=== PATIENT | female | born 1950 | race Caucasian/White ===

== ENCOUNTER 2017-11-03 16:00 | Outpatient (RCR) | payer OTHER, MEDICARE, SELFPAY | END 2017-11-03 23:59 | LOC: PT 16:00 | PROVIDERS: PCP Family Medicine; Visit Provider Family Medicine | DX: M54.16 Radiculopathy, lumbar region (principal) | CPT/HCPCS: 97010; 97012; 97014; 97110; 97161; G0283 ==

== ENCOUNTER 2017-12-07 15:30 | Outpatient (RCR) | payer OTHER, MEDICARE, SELFPAY | END 2017-12-07 15:31 | disposition home or self-care (01) | LOC: PT 15:30 | PROVIDERS: Family Provider Family Medicine; PCP Family Medicine; Visit Provider Family Medicine | DX: M54.16 Radiculopathy, lumbar region (principal) | CPT/HCPCS: 97010; 97012; 97014; 97110; 97164; G0283 ==

== ENCOUNTER → 2018-03-13 10:30 | Outpatient (POV) | payer OTHER, MEDICARE, SELFPAY | PROVIDERS: Family Provider Family Medicine; PCP Family Medicine; Visit Provider Nurse Practitioner Acute Care | DX: Z00.00 Encounter for general adult medical examination without abnormal findings (principal) ==

== ENCOUNTER → 2019-11-16 10:59 | Outpatient (CLI) | payer MEDICARE, OTHER, SELFPAY ==
--- NOTE | 2019-11-16 11:06 | XR_ITS ---
PROCEDURE: XR HAND RT MIN 3V CLINICAL INDICATION: ROSALIO HAND PAIN Right hand pain COMPARISON: No exams were available for comparison FINDINGS: No fracture or dislocation. No lytic or blastic change. There is normal mineralization. There are severe osteoarthritic changes at the interphalangeal joint of the thumb and the DIP joint of the 2nd digit with mild osteoarthritis of the DIP joint of the 3rd digit. Other findings:None. IMPRESSION: There are severe osteoarthritic changes at the interphalangeal joint of the thumb and the DIP joint of the 2nd digit with mild osteoarthritis of the DIP joint of the 3rd digit. Dictated by: Deandre Flores MD 11/16/2019 11:25 Electronically signed by Deandre Flores MD in [place] 11/16/2019 11:25
--- NOTE | 2019-11-16 11:06 | XR_ITS ---
PROCEDURE: XR HAND LT MIN 3V CLINICAL INDICATION: ROSALIO HAND PAIN COMPARISON: No exams were available for comparison FINDINGS: No fracture or dislocation. No lytic or blastic change. There is normal mineralization. Moderate osteoarthritic changes are present at the interphalangeal joint of the thumb with bony hypertrophic change and separate area of calcification along the lateral aspect of the joint. Mild osteoarthritic changes are present at the 1st and 2nd DIP joint. Other findings:None. IMPRESSION: Osteoarthritis Dictated by: Deandre Flores MD 11/16/2019 11:41 Electronically signed by Deandre Flores MD in [place] 11/16/2019 11:41
== END ==
PROVIDERS: PCP Family Medicine; Visit Provider Family Medicine
DX: M79.642 Pain in left hand (principal); M79.641 Pain in right hand
CPT/HCPCS: 73130

== ENCOUNTER → 2020-04-03 07:42 | Outpatient (CLI) | payer MEDICARE, OTHER, SELFPAY ==
[2020-04-03 10:24] LABS: Coronavirus 19 IgG Antibody Negative (Negative); Coronavirus 19 IgM Antibody Negative (Negative)
== END ==
PROVIDERS: Visit Provider Internal Medicine Gastroenterology
DX: Z01.818 Encounter for other preprocedural examination (principal)
CPT/HCPCS: 36415; 86328

== ENCOUNTER 2020-04-04 09:15 | Day surgery (SDC) | payer MEDICARE, OTHER, SELFPAY ==
[2020-04-01 15:31] VITALS: BMI 25.2
--- NOTE | 2020-04-02 10:14 | SUR.PREOP ---
04/02/2020 @ 1015--PHONE CALL MADE TO PATIENT. PATIENT UNDERSTANDS THAT LAB WORK AND COVID TESTING NEEDS TO BE COMPLETED @ 0700 ON 04/03/2020. PATIENT UNDERSTANDS IF LAB WORK AND COVID-19 TESTS ARE NOT COMPLETED BY 12PM ON THAT DATE, THE SURGERY SCHEDULED WILL BE CANCELLED AND RESCHEDULED FOR ANOTHER TIME.
[2020-04-04] VITALS (7 sets, daily range): BP systolic 139–161; BP diastolic 68–104; PULSE 55–88; RESP 15–18; TEMP 36.1–36.6; O2SAT 97–99
--- NOTE | 2020-04-04 11:27 | HMH.PROC ---
[facility] Procedure Note Procedure Note:: Upper Endoscopy Procedure Report: Esophagogastroduodenoscopy with cold biopsies and TTS balloon dilation Endoscopost: Alexander Vasquez II, MD Referring Physician: Sadi Manzanares MD Date of Procedure: April 04, 2020 Equipment: Olympus GIF 180 standard upper endoscope Sedation: MAC sedation Indications: Mrs. Schaeffer is a 69-year-old female with a history of dysphagia secondary to a Schatzki's ring. She has had prior dilations in 2009, April 2016 and her last EGD with dilation was in March 2018. The patient also reports moderate postprandial belching with mouth foaming, sharp stabbing mid upper sternal chest pain and some pyrosis. The patient does have some early satiety. She reports globus sensation. Iberogast caused nausea. She stopped Citrucel and more recently this resulted in some diarrhea. She does take omeprazole. She did see Felisa Newton in December 2019. Procedure: Prior to the procedure, a history and physical exam was performed, and patient's medications and allergies were reviewed. The risks, benefits and alternatives of the sedation and procedure were discussed with the patient. All questions were answered and informed consent was obtained. The patient was brought to the procedure room. Patient identification and proposed procedure were verified by the physician and the nurse. The patient was placed in a left lateral decubitus position and the scope was passed under direct vision. Throughout the procedure, the patient's blood pressure, pulse, and oxygen saturations were monitored continuously. The upper GI endoscopy was accomplished without difficulty. The patient tolerated the procedure well. Findings: The scope was passed directly into the upper esophagus and advanced to the third portion of the duodenum. The post bulbar duodenum and duodenal bulb were normal with normal mucosa and conniventes. The scope was withdrawn through a normal duodenal bulb and pylorus into the stomach. There was bile reflux with mild linear reactive gastropathy of the antrum and body of the stomach. The remainder of the antrum, body and fundus of the stomach were grossly normal. Upon retroflexion there was a very small 1 to 2 cm hiatal hernia. 2 biopsies were taken in the antrum and along the lesser curvature for histology to rule out gastritis and/or H pylori. The scope was then withdrawn into the esophagus. There was a distal Schatzki's ring. This was dilated to 60 Armenian/20 mm with a TTS hydrostatic balloon. There was no evidence of reflux esophagitis or Sheets's. There were tertiary contractions and evidence of moderate esophageal dysmotility. The entire esophagus was dilated to 20 mm and there was some resistance at the cricopharyngeus/cricopharyngeal spasm. The remainder of the esophageal mucosa was normal. Impression: 1. Cricopharyngeal spasm status post dilation to 20 mm 2. Schatzki's ring dilated to 20 mm 3. Nonerosive GERD with mild esophageal dysmotility and very small 1 to 2 cm hiatal hernia 4. Bile reflux with mild linear reactive gastropathy Plan: The patient should have clinical improvement with dilation. I will discuss additional treatment options (promotility therapy (i.e. Reglan)). I would continue omeprazole as maintenance therapy. I will follow-up the biopsies.
== END 2020-04-04 12:17 | disposition home or self-care (01) ==
LOC: OUTP 09:19
PROVIDERS: PCP Family Medicine; Visit Provider Internal Medicine Gastroenterology
PROC: 0DJ08ZZ Inspection of Upper Intestinal Tract, Via Natural or Artificial Opening Endoscopic (ICD-10-PCS; CPT 43235; principal; 2020-04-04 10:30)
DX: J39.2 Other diseases of pharynx (principal); K22.2 Esophageal obstruction; K44.9 Diaphragmatic hernia without obstruction or gangrene; K22.4 Dyskinesia of esophagus; K31.9 Disease of stomach and duodenum, unspecified; K21.9 Gastro-esophageal reflux disease without esophagitis; J45.909 Unspecified asthma, uncomplicated; Z90.89 Acquired absence of other organs; Z90.710 Acquired absence of both cervix and uterus; Z79.899 Other long term (current) drug therapy; Z79.51 Long term (current) use of inhaled steroids
CPT/HCPCS: 43239; 43249; 88305; C1726

== ENCOUNTER → 2020-06-09 08:34 | Outpatient (POV) | payer MEDICARE, OTHER, SELFPAY | PROVIDERS: Visit Provider Nurse Practitioner Family | DX: Z00.00 Encounter for general adult medical examination without abnormal findings (principal) ==

== ENCOUNTER → 2020-12-24 12:20 | Outpatient (CLI) | payer MEDICARE, OTHER, SELFPAY ==
--- NOTE | 2020-12-24 12:25 | XR_ITS ---
PROCEDURE: XR CHEST PORTABLE CLINICAL HISTORY: COVID TESTING COMPARISON: No exams were available for comparison FINDINGS: The cardiomediastinal silhouette and pulmonary vascularity are within normal limits. The lungs are clear without infiltrates, suspicious nodules, or pleural effusions. No acute bony abnormalities. IMPRESSION: No acute findings. Dictated by: Sia Leary MD 12/24/2020 13:16 Sia Leary MD in [place] 12/24/2020 13:16
[2020-12-24 12:58] LABS: Basophils # 0.1 K/mm3 (0-0.2); Basophils % 1.7 % (0.1-2.0); Eosinophils # 0.8 K/mm3 (0.0-0.4); Eosinophils % 10.1 % (0.1-12.0); Hematocrit 43.5 % (37.0-47.0); Hemoglobin 13.4 g/dL (12.2-16.2); Lymphocytes # 2.1 K/mm3 (0.7-4.5); Lymphocytes % 25.3 % (10-50); Mean Corpuscular HGB Conc 30.8 g/dL (31.8-35.4); Mean Corpuscular Hemoglobin 29.2 pg (27.0-31.2); Mean Corpuscular Volume 94.6 fl (81-99); Mean Platelet Volume 7.1 fl (7.4-10.4); Monocytes # 0.4 K/mm3 (0.1-1.0); Monocytes % 5.3 % (1.7-9.3); Neutrophils # 4.7 K/mm3 (1.8-7.8); Neutrophils % 57.6 % (37.0-80.0); Platelet Count 424 K/mm3 (142-424); Red Cell Distribution Width 13.8 % (11.5-17.5); White Blood Count 8.2 K/mm3 (4.8-10.8)
== END ==
PROVIDERS: PCP Family Medicine; Visit Provider Family Medicine
DX: Z20.822 Contact with and (suspected) exposure to COVID-19 (principal); Z79.899 Other long term (current) drug therapy
CPT/HCPCS: 36415; 71045; 85025; U0003

== ENCOUNTER → 2021-03-05 13:46 | Outpatient (CLI) | payer MEDICARE, OTHER, SELFPAY ==
--- NOTE | 2021-03-05 13:50 | XR_ITS ---
PROCEDURE: XR KNEE LT 3V CLINICAL INDICATION: LT KNEE PAIN COMPARISON: CR KNEE3L KNEE-3 VIEWS-LT from 10/25/2016 FINDINGS: Moderate to severe osteoarthritic changes are present involving the medial compartment and patellofemoral joint. There is a small knee joint effusion in the suprapatellar region. No fracture or dislocation. Along the dorsal and distal aspect of the femur there is a 7 mm calcific density suggesting a loose body IMPRESSION: Moderate to severe osteoarthritis with knee joint effusion and small loose body along the distal posterior aspect of the femur Dictated by: Deandre Flores MD 03/05/2021 17:54 Deandre Flores MD in [place] 03/05/2021 17:54
== END ==
PROVIDERS: PCP Family Medicine; Visit Provider Family Medicine
DX: M25.562 Pain in left knee (principal)
CPT/HCPCS: 73562

== ENCOUNTER → 2021-03-26 10:04 | Outpatient (CLI) | payer MEDICARE, OTHER, SELFPAY ==
--- NOTE | 2021-03-26 10:08 | XR_ITS ---
PROCEDURE: XR KNEE LT 4V CLINICAL INDICATION: Lt knee pain COMPARISON: CR KNEE3L KNEE-3 VIEWS-LT from 10/25/2016 CR XR KNEE LT 3V from 03/05/2021 FINDINGS: No fracture or dislocation. No lytic or blastic change. There is normal mineralization. Severe osteoarthritic changes involves the medial compartment of the left knee with mild osteoarthritis of the patellofemoral joint and lateral compartment. Small suprapatellar effusion is present. Other findings:None. IMPRESSION: Osteoarthritis of the left knee with knee joint effusion overall not significantly changed Dictated by: Deandre Flores MD 03/26/2021 11:29 Deandre Flores MD in [place] 03/26/2021 11:29
== END ==
PROVIDERS: PCP Family Medicine; Visit Provider Orthopaedic Surgery
DX: M25.562 Pain in left knee (principal)
CPT/HCPCS: 73564

== ENCOUNTER → 2021-11-09 08:56 | Outpatient (CLI) | payer MEDICARE, OTHER, SELFPAY ==
[2021-11-09 09:14] LABS: Microscopic, Urine URINE MICROSCOPIC (MICROSCOPIC)
--- NOTE | 2021-11-09 09:39 | XR_ITS ---
FINAL REPORT TECHNIQUE: Chest PA & Lateral CLINICAL HISTORY: MODERATE TO PERSISTENT ASTHMA,PRE-OP, no sx, non smoker FINDINGS: 2 views of the chest were performed. The heart size is normal. The mediastinum is within normal limits. There is no acute cardiopulmonary process. There are mild chronic changes at the lung bases. There are no pleural effusions. There is no pneumothorax. The bony thorax appears intact. IMPRESSION: No acute cardiopulmonary process. Reviewed, Interpreted and Dictated by Ronnie Wagner MD Transcribed by Haily Street Authenticated by Ronnie Wagner MD on 11/09/2021 10:43:01 AM [facility]
--- NOTE | 2021-11-09 09:58 | ECG_ITS ---
APPROVED REPORT Exam: Resting ECG HR:91 bpm ECG Measurements Heart Rate 91 AXES VT 150 P 70 QRSd 70 QRS 68 QT 346 T 49 QTc 425 Conclusion Normal sinus rhythm Nonspecific T wave abnormality Abnormal ECG Electronically signed by : Bill De Anda MD 11/09/2021 21:33:47
[2021-11-09 10:05] LABS: Basophils # 0.1 K/mm3 (0-0.2); Basophils % 1.8 % (0.1-2.0); Eosinophils # 0.6 K/mm3 (0.0-0.4); Eosinophils % 9.7 % (0.1-12.0); Hematocrit 45.6 % (37.0-47.0); Hemoglobin 14.6 g/dL (12.2-16.2); Lymphocytes # 1.8 K/mm3 (0.7-4.5); Lymphocytes % 29.6 % (10-50); Mean Corpuscular HGB Conc 31.9 g/dL (31.8-35.4); Mean Corpuscular Hemoglobin 30.1 pg (27.0-31.2); Mean Corpuscular Volume 94.4 fl (81-99); Mean Platelet Volume 8.9 fl (7.4-10.4); Monocytes # 0.3 K/mm3 (0.1-1.0); Monocytes % 4.9 % (1.7-9.3); Neutrophils # 3.3 K/mm3 (1.8-7.8); Neutrophils % 54.1 % (37.0-80.0); Platelet Count 526 K/mm3 (142-424); Red Blood Count 4.83 M/mm3 (4.20-5.40); Red Cell Distribution Width 13.3 % (11.5-17.5); White Blood Count 6.1 K/mm3 (4.8-10.8)
[2021-11-09 10:25] LABS: Chloride 103 mmol/L (98-107)
[2021-11-09 10:26] LABS: Potassium 4.9 mmoL/L (3.5-5.1); Sodium 140 mmol/L (136-145)
[2021-11-09 10:28] LABS: Alanine Aminotransferase 34 U/L (12-78); Aspartate Amino Transferase 47 U/L (14-36); Blood Urea Nitrogen 19 mg/dl (7-17); Estimated Glomerular Filt Rate 49 ml/min (>60); GFR (African American) 59 ML/MIN (>60)
[2021-11-09 10:29] LABS: Albumin Level 4.3 g/dl (3.5-5.0); Albumin/Globulin Ratio 1.5 (1.1-1.8); Alkaline Phosphatase 85 U/L (38-126); Anion Gap 10.9 mEq/L (5-15); Bilirubin,Total 0.6 mg/dl (0.2-1.3); Calcium 9.8 mg/dl (8.4-10.2); Carbon Dioxide 31 mmol/L (22.0-30.0); Chol/HDL Ratio 2.9 (1-3.5); Cholesterol 274 mg/dl (140-200); Globulin 2.8 g/dL (1.3-3.2); Glucose 110 mg/dl (74-100); HDL Cholesterol 93 mg/dl (40-60); Total Protein,Serum 7.1 g/dl (6.3-8.2); Triglycerides 95 mg/dl (30-150); VLDL Cholesterol 19 mg/dL (0-40)
[2021-11-09 10:40] LABS: Direct LDL Cholesterol 149.88 mg/dL (100-129)
[2021-11-09 10:59] LABS: 25-OH Vitamin D, Total 117 ng/mL (30-100)
[2021-11-09 11:21] LABS: Uric Acid 5.5 mg/dl (2.5-6.2)
[2021-11-09 11:31] LABS: Appearance,Urine CLEAR (Clear); Bilirubin,Urine Negative (Negative); Blood, Urine Negative (Negative); Color,Urine YELLOW (Yellow); Glucose,Urine (UA) Negative (Negative); Ketones,Urine Negative (Negative); Leukocyte Esterase,Urine TRACE (Negative); Nitrate,Urine Negative (Negative); Protein,Urine Negative (Negative); Specific Gravity, Urine 1.025 (1.005-1.030); Urobilinogen,Urine 0.2 EU/dl (0.2)
[2021-11-09 11:45] LABS: Creatinine,Urine Random 155 mg/dL (Not Estab.)
[2021-11-09 11:46] LABS: Microalbumin/Creatinine Ratio 8.2
== END ==
PROVIDERS: PCP Family Medicine; Visit Provider Family Medicine
DX: Z01.818 Encounter for other preprocedural examination (principal); I10 Essential (primary) hypertension; J45.40 Moderate persistent asthma, uncomplicated; E55.9 Vitamin D deficiency, unspecified
CPT/HCPCS: 36415; 71046; 80053; 80061; 81001; 82043; 82306; 82570; 84550; 85025; 93005

== ENCOUNTER → 2021-12-30 12:18 | Outpatient (CLI) | payer MEDICARE, OTHER, SELFPAY | PROVIDERS: Visit Provider Internal Medicine Gastroenterology | DX: Z01.812 Encounter for preprocedural laboratory examination (principal); Z11.52 Encounter for screening for COVID-19 | CPT/HCPCS: C9803; U0003; U0005 ==

== ENCOUNTER 2022-03-10 08:00 | Outpatient (RCR) | payer MEDICARE, OTHER, SELFPAY ==
--- NOTE | 2022-02-10 09:20 | HMH.PTOPEV ---
PT Outpatient Evaluation Rehab PT Outpatient Evaluation Start: 02/10/22 08:03 Freq: Status: Active Protocol: Document 02/10/22 09:08 OMAIRA (Rec: 02/10/22 09:20 OMAIRA [id number]) Electronically Signed By James Nj, PT 02/10/22 09:08 Outpatient Therapy Subjective History Subjective History Pt is 71 yowf who presents 1 day S/P L TKA with pain, edema , and stiffness. She presents with post-op [employer] pump in place and compression wrapping to the L knee area. As pt is only 1 day post-op, decision was made to leave compression wrapping in place to aid further edema reduction. Pt reports she has suffered from significant L knee pain x ~5-6 yrs and had difficulty with L knee extension prior to surgery. She reports PMH of asthma only. Chief Complaint Pain,Stiff,Swelling Symptom Type Ache,Sharp Symptoms Relieved By Rest/Positioning Symptoms Aggravated By Standing,Walking Prior Functional Limitations None Current Functional Limitations Standing,Squatting,Recreation Activity,Walking Symptom Description Constant but Variable Level of pain today (0-10) 5 Pain scale - at its worst (0-10) 7 Hip/Knee Eval Gait Observation General Gait Pattern Observation Antalgic Gait Assistive Device Assistive Devices Rolling / Wheeled Walker Palpation Tenderness left Knee Palpation Finding Tenderness Knee Palpation Overall Comment med/lat knee jt line MMT Hip Flexion Strength Grade 3 Fair Hip Abduction Strength Grade 3 Fair Hip Adduction Strength Grade 3 Fair Hip Extension Strength Grade 3 Fair Knee Extension Strength Grade 2 Poor Knee Flexion Strength Grade 2 Poor ROM Knee Extension Active Range of Motion ( -15 degrees) Knee Extension Passive Range of Motion ( -5 degrees) Knee Flexion Active Range of Motion ( 15-92 degrees) Knee Flexion Passive Range of Motion ( 5-100 degrees) Outpatient Therapy Assessment Impairments Problems/Impairmments Palpation Tenderness,Impaired Range of Motion,Impaired Strength,Impaired Endurance, Impaired Transfers,Impaired Gait Pattern,Impaired Walking,
== END 2022-03-10 08:05 | disposition home or self-care (01) ==
LOC: PT 08:00
PROVIDERS: Visit Provider Orthopaedic Surgery
DX: M25.562 Pain in left knee (principal); Z96.652 Presence of left artificial knee joint
CPT/HCPCS: 97010; 97014; 97016; 97110; 97112; 97140; 97163; G0283

== ENCOUNTER → 2023-05-13 08:14 | Outpatient (CLI) | payer MEDICARE, OTHER, SELFPAY ==
[2023-05-13 08:47] LABS: Blood Urea Nitrogen 20 mg/dl (7-17); Estimated Glomerular Filt Rate 49 ml/min (>60); GFR (African American) 59 ML/MIN (>60)
== END ==
PROVIDERS: PCP Family Medicine; Visit Provider Nurse Practitioner
DX: H91.93 Unspecified hearing loss, bilateral (principal)
CPT/HCPCS: 36415; 82565; 84520

== ENCOUNTER → 2023-05-23 08:53 | Outpatient (CLI) | payer MEDICARE, OTHER, SELFPAY ==
--- NOTE | 2023-05-23 08:53 | MR_ITS ---
FINAL REPORT TECHNIQUE: Multiplanar multisequence MRI imaging was performed through the brain with additional small xjpkh-lr-bjac thin section imaging through the CP angle and IAC's without and with contrast. CLINICAL HISTORY: tinnitus IN LEFT EAR. MINIMAL HEARING LOSS IN LEFT EAR. COMPARISON: None FINDINGS: There is no mass-effect or midline shift. There is no hydrocephalus. Signal intensity is normal. The brainstem and cerebellum are without acute abnormality. On diffusion weighted images there is no restricted diffusion. There is fluid in the right mastoid air cells consistent with mastoiditis. There is mucoperiosteal thickening in the sphenoid sinus and right greater than left maxillary sinuses. On small nimid-xo-qxmn thin section imaging through the CP angle and internal auditory canal, there is no CP angle mass or abnormal signal intensity. Postcontrast images reveal no abnormal enhancement. IMPRESSION: Right mastoiditis. Otherwise no acute intracranial abnormality with no abnormal enhancement. Reviewed, Interpreted and Dictated by Negin Botello MD Transcribed by Yuliya Fitch Authenticated and [facility]
== END ==
PROVIDERS: PCP Family Medicine; Visit Provider Nurse Practitioner
DX: H93.12 Tinnitus, left ear (principal)
CPT/HCPCS: 70553; A9576

== ENCOUNTER → 2023-07-18 12:25 | Outpatient (CLI) | payer MEDICARE, OTHER, SELFPAY ==
--- NOTE | 2023-07-18 12:31 | XR_ITS ---
FINAL REPORT CLINICAL HISTORY: PNEUMONIA COMPARISON: 11/09/2021 FINDINGS: 2 views of the chest were obtained . The heart is normal in size. The mediastinum is within normal limits. There is mild left base atelectasis. There is no pneumothorax. Osseous structures are unremarkable. IMPRESSION: Mild left base atelectasis. Reviewed, Interpreted and Dictated by Han Farmer III, MD Transcribed by Lena Biggs Authenticated and [facility] [place] [place]
== END ==
PROVIDERS: PCP Family Medicine; Visit Provider Family Medicine
DX: J18.9 Pneumonia, unspecified organism (principal)
CPT/HCPCS: 71046

== ENCOUNTER 2024-08-27 13:25 | Emergency (ER) | payer MEDICARE, OTHER, SELFPAY ==
[2024-08-27 13:35] VITALS: BP 151/79; PULSE 96; RESP 20; TEMP 36.7; O2SAT 97; BMI 26.4
--- NOTE | 2024-08-27 13:52 | ED_ITS ---
Discharge Plan Disposition Patient Disposition: Home, Self-Care Condition: Good Prescriptions Prescriptions: New etodolac 200 mg capsule 200 mg PO Q8H PRN (Reason: pain) Qty: 14 0RF lidocaine 5 % adhesive patch,medicated 1 patch topical DAILY PRN (Reason: pain) Qty: 15 0RF Rx Instructions: leave on most painful area for up to 12 hrs then remove patch for 12 hours No Action cyclobenzaprine 10 mg tablet 10 mg PO HS Referrals Follow up/Referrals: Sadi Manzanares MD [Primary Care Provider] - See instructions Activity Restrictions/Add. Instructions Additional Instructions/Restrictions: *Etodolac broderick 8 hours with meal as needed for pain/inflammation *Remember you had a Toradol shot in the clinic today, which is similar to Etodolac so do not start for at least 10 hrs *Not additional anti-inflammatory like Ibuprofen, motrin, aleve, advil with the above amount of Etodolac. You can still take Tylenol every 4 hours as needed if you need something else for pain *Ice 20 minutes every 2 hours for the first 48 hours after the initial injury followed by moist heat every 20 minutes 3-4 times a day to affected area *Muscle relaxer every 8 hours as needed for muscle spasms as you was previously prescribed but remember, it WILL cause drowsiness You cannot take it and drive, operate machinery or care for small children. *Keep this area active, no movement leads to more stiffness, However take it easy and avoid heavy lifting pushing or pulling *Follow up with you family doctor if no improvement for further treatment Use lidocaine patch as directed apply to area and leave in place for 12 hours then remove patch for 12 hours then may repeat Clinical Impressions Clinical Impression: Acute bilateral thoracic back pain Instructions Patient Instructions: Lidocaine Transdermal Patch, Etodolac, DI for Thoracic Back Pain Print Language Print Language: Slovenian Discharge ED Provider[place] Cindy Rutledge [facility] [place] General Stated complaint: back pain Mode of Arrival: Ambulatory Source of Information: Patient Limitations: No Limitations Time Seen by Provider: 08/27/24 13:52 Description of Symptoms (Recalled from Triage Doc. by RN): PATIENT C/O BACK PAIN THAT STARTED THIS MORNING, NO KNOWN INJURY HEENT Symptoms (Recalled from RN notes): No Resp Symptoms (Recalled from RN notes): No Skin Symptoms (Recalled from RN notes): No MS Symptoms (Recalled from RN notes): Yes Functional Status (Recalled from RN notes): WNL History of Present Illness Provider Complaint: Patient states that she has been having pain in her mid back that goes around to both sides of her ribs and sinha and aches states she has flexeril at home and took one of those but hasnt helped much States that she hasnt done anything that she is aware of to hurt her back but when she couldnt get any relief she came in to get checked and see if she could get something to help Denies cough, denies feeling ill Related Data Home Medications ?Medication ?Instructions ?Recorded ?Confirmed cyclobenzaprine 10 mg tablet 10 mg PO HS 03/27/21 08/27/24 Previous Rx's ?Medication ?Instructions ?Recorded etodolac 200 mg capsule 200 mg PO Q8H PRN pain #14 caps 08/27/24 lidocaine 5 % topical patch 1 patch topical DAILY PRN pain #15 08/27/24 ea Allergies Allergy/AdvReac Type Severity Reaction Status Date / Time prednisone [PREDNISONE] Allergy Intermediate HALLUCINATI Verified 05/30/23 10:19 ONS Worker's Comp Is this a Worker's Comp case?: No [facility] [place] Disclaimer: The information contained in this section may have been updated after the patient was seen, as this information can be updated by other users. Medical History Hearing loss of both ears Tinnitus of left ear Tympanosclerosis Social History Smoking Status: Never smoker alcohol intake: never current occupational status: retired Travel in the last 8 weeks: None household members: spouse housing: house current occupational exposures/hazards: No caffeine: No ROS Obtained: Yes All systems reviewed & no additional complaints except as documented and Yes Systems reviewed as appropriate & no additional complaints except as documented Constitutional Constitutional: Reports system reviewed and no additional complaints, except as documented and Reports as per HPI ENT Ears, Nose, Mouth, and Throat: Reports system reviewed and no additional complaints, except as documented and Reports as per HPI Cardiovascular Cardiovascular: Reports system reviewed and no additional complaints, except as documented and Reports as per HPI Respiratory Respiratory: Reports system reviewed and no additional complaints, except as documented and Reports as per HPI Gastrointestinal Gastrointestingal: Reports system reviewed and no additional complaints, except as documented and as per HPI Musculoskeletal Musculoskeletal: Reports system reviewed and no additional complaints, except as documented, Reports as per HPI and Reports back pain (mid back pain across her mid back Denies known injury) Comments: Denies loss of control of bowel or bladder Physical Exam General General appearance: alert and in no apparent distress ENT ENT exam: Present mucous membranes moist Respiratory Respiratory exam: Present normal lung sounds bilaterally; Absent respiratory distress or wheezes Cardiovascular Cardiovascular exam: Present regular rate, normal rhythm and normal heart sounds Back Exam Back exam: Present tenderness and muscle spasm Back 1 view image: 2 1. reports achy like burning pain worse with movement and worse on left side Denies known injury Denies loss of control of bowel or bladder Neurological Exam Neurological exam: Present alert, oriented X3 and normal gait Medical Decision Making Medical Records Screening: Per USPSTF and CDC recommendations, given the prevalence of disease in our region, it is our hospital?s policy to screen for HIV and viral Hepatitis for all patients aged 18 and over and those with ongoing risk factors. Doug Inquiry Pt receiving controlled substance: No Doug was queried for this patient: No Vital Signs: 08/27/24 13:35 Temperature 98.0 F Temperature Source Oral Pulse Rate [Left Brachial] 96 H Respiratory Rate 20 Blood Pressure [Left Arm] 151/79 H Blood Pressure Mean [Left Arm] 103 Blood Pressure Source [Left Arm] Automatic Cuff Blood Pressure Position [Left Arm] Sitting 02 Sat by Pulse Oximetry 97 Oxygen Delivery Method Room Air Radiology Data #1: Image(s): T-Spine Image Reviewed: Yes I have reviewed radiologist's interpretation IMPRESSION: No acute fracture or malalignment. Mild-moderate multilevel degenerative change.
--- NOTE | 2024-08-27 14:03 | XR_ITS ---
PROCEDURE INFORMATION: Exam: XR Thoracic Spine Exam date and time: 08/27/2024 2:06 PM Age: 73 years old Clinical indication: Pain in thoracic spine; Additional info: Mid back pain TECHNIQUE: Imaging protocol: Radiologic exam of the thoracic spine. Views: 3 views. COMPARISON: CR XR CHEST 2V 07/18/2023 12:45 PM FINDINGS: Bones/joints: No acute fracture or malalignment. Mild levocurvature. Mild-moderate multilevel degenerative change. Soft tissues: No soft tissue abnormality. Heart/Mediastinum: Apparent mild cardiomegaly. Imaged lungs are clear. Left costophrenic sulcus not well seen. IMPRESSION: No acute fracture or malalignment. Mild-moderate multilevel degenerative change.
[2024-08-27] MEDS: KETOROLAC 30MG/ML VIAL 30 MG IM (16:03)
[2024-08-27 16:05] VITALS: BP 151/79; PULSE 96; RESP 20; TEMP 36.7; O2SAT 97
== END 2024-08-27 16:11 | disposition home or self-care (01) ==
PROVIDERS: Emergency Provider Nurse Practitioner; PCP Family Medicine
DX: M54.6 Pain in thoracic spine (principal)
CPT/HCPCS: 72072; 96372; 99213; G0381; J1885

== ENCOUNTER 2024-12-07 18:40 | Inpatient (IN) | payer MEDICARE, OTHER, SELFPAY ==
--- NOTE | 2024-12-07 18:48 | ECG_ITS ---
APPROVED REPORT Exam: Resting ECG HR:124 bpm ECG Measurements Heart Rate 124 AXES AL 111 P 73 QRSd 86 QRS 70 QT 338 T 62 QTc 412 Conclusion SINUS TACHYCARDIA WITH SHORT AL INTERVAL WITH FREQUENT VENTRICULAR PREMATURE COMPLEXES ST DEVIATION AND MODERATE T-WAVE ABNORMALITY, CONSIDER LATERAL ISCHEMIA [-0.1+ mV T-WAVE IN I/aVL/V5/V6] Motion artifact Electronically signed by : SELAM LAKE, 12/08/2024 00:16:34
[2024-12-07 18:51] VITALS: BP 203/91; PULSE 128; RESP 32; TEMP 37.2; O2SAT 90; BMI 25.0
--- NOTE | 2024-12-07 18:52 | XR_ITS ---
PROCEDURE INFORMATION: Exam: XR Chest Exam date and time: 12/07/2024 7:03 PM Age: 74 years old Clinical indication: Shortness of breath; Additional info: SOA TECHNIQUE: Imaging protocol: Radiologic exam of the chest. Views: 1 view. COMPARISON: CR XR CHEST 2V 07/18/2023 12:45 PM FINDINGS: Lungs: Normal. Pleural spaces: Unremarkable. No pleural effusion. No pneumothorax. Heart/Mediastinum: Normal. Bones/joints: Multilevel thoracic spine degenerative disc space narrowing. Sclerotic focus within the left humeral head, likely enchondroma, unchanged. IMPRESSION: No acute cardiopulmonary abnormality.
[2024-12-07 18:59] LABS: Basophils # 0.1 K/mm3 (0-0.2); Basophils % 0.8 % (0.1-2.0); Eosinophils # 0.1 K/mm3 (0.0-0.4); Eosinophils % 0.7 % (0.1-12.0); Hematocrit 41.2 % (37.0-47.0); Hemoglobin 13.1 g/dL (12.2-16.2); Lymphocytes # 0.7 K/mm3 (0.7-4.5); Lymphocytes % 9.6 % (10-50); Mean Corpuscular HGB Conc 31.8 g/dL (31.8-35.4); Mean Corpuscular Hemoglobin 29.6 pg (27.0-31.2); Mean Corpuscular Volume 93.2 fl (81-99); Mean Platelet Volume 9.4 fl (7.4-10.4); Monocytes # 0.8 K/mm3 (0.1-1.0); Monocytes % 10.9 % (1.7-9.3); Neutrophils % 77.7 % (37.0-80.0); Platelet Count 303 K/mm3 (142-424); Red Blood Count 4.42 M/mm3 (4.20-5.40); Red Cell Distribution Width 13.4 % (11.5-17.5); White Blood Count 7.7 K/mm3 (4.8-10.8)
[2024-12-07] MEDS: METHYLPREDNISOLONE SOD SUCC 125MG VIAL 125 MG IV (19:00)
[2024-12-07] MEDS: MAGNESIUM SULFATE IN WATER 2 GM/50 ML PIGGYBACK IV (19:00)
[2024-12-07] MEDS: IPRATROPIUM/ALBUTEROL 3 ML NEB 9 ML IH (19:00)
[2024-12-07 19:11] LABS: VBG Base Excess -2.9 mmol/L (-2.4-2.3); VBG HCO3 22.9 mmol/L (23-30); VBG Oxygen Saturation 81.7 % (50-70); VBG PCO2 43.8 mmol/L (35-51); VBG PH 7.34 mmol/L (7.31-7.41); VBG Total CO2 24.2 mmol/L (23-27)
[2024-12-07 19:12] LABS: Lactate Venous 2.3 mmol/L (0.4-2.0)
[2024-12-07 19:13] LABS: Alanine Aminotransferase 48 U/L (12-78); Albumin Level 4.7 g/dl (3.5-5.0); Albumin/Globulin Ratio 1.7 (1.1-1.8); Alkaline Phosphatase 87 U/L (38-126); Anion Gap 13.8 mEq/L (5-15); Aspartate Amino Transferase 65 U/L (14-36); Bilirubin,Total 0.3 mg/dl (0.2-1.3); Blood Urea Nitrogen 13 mg/dl (7-17); Calcium 9.2 mg/dl (8.4-10.2); Carbon Dioxide 25 mmol/L (22.0-30.0); Chloride 100 mmol/L (98-107); Creatinine Clearance Estimated 42 mL/min (50-200); Estimated Glomerular Filt Rate 61 ml/min (>60); GFR (African American) 74 ML/MIN (>60); Globulin 2.8 g/dL (1.3-3.2); Glucose 113 mg/dl (74-100); Magnesium 1.9 mg/dl (1.6-2.3); Potassium 3.8 mmoL/L (3.5-5.1); Sodium 135 mmol/L (136-145); Total Protein,Serum 7.5 g/dl (6.3-8.2)
[2024-12-07 19:24] LABS: NT Pro Brain Natriuretic Pep. 359 pg/mL (0-450)
--- NOTE | 2024-12-07 19:25 | PC.NURSE ---
rounded on pt at this time. pt voices no needs. at bedside. covid swab obtained and sent to lab. call light in reach.
[2024-12-07 19:26] LABS: Coronavirus 19, PCR Not Detected (NotDetected); Influenza B, PCR Not Detected (NotDetected)
[2024-12-07 19:28] LABS: Troponin I < 0.01 ng/ml (0.00-0.034)
[2024-12-07 19:30] VITALS: BP 149/75; PULSE 132; RESP 22; O2SAT 98
--- NOTE | 2024-12-07 19:42 | [facility].EDCP ---
Discharge Plan Disposition Patient Disposition: Admitted Condition: Good Clinical Impressions Clinical Impression: Flu, Acute respiratory failure, Asthma with status asthmaticus Discharge ED Provider: Desirae Duncan HPI General Chief Complaint: Shortness of Breath/Dyspnea Stated Complaint: Difficulty Breathing Time Seen by Provider: 12/07/24 18:48 Mode of Arrival: Wheelchair Source of Information: Patient Limitations: No Limitations Description of Symptoms (Recalled from ER Triage Doc. by RN): PT STATES SHE HAS HAD SOA X2WKS. YESTERDAY SHE STARTED FEELING SIGNIFICANTLY WORSE. PT FLEW IN FROM [place] TODAY. SHE STATES WHEN SHE GOT OFF THE PLANE SHE HAD A NEAR SYNCOPAL EVENT. PT C/O A PRODUCTIVE COUGH WITH CLEAR SPUTUM, AND STERNAL CHEST PRESSURE 5/10. PT HAS A HX OF ASTHMA/COPD, NO 02 USE AT HOME. PT IS 90% ON RA ON ARRIVAL. PT PLACED ON 2LNC AND INCREASED TO 99%. PT IS TACHYPNEIC AT 32, ABDOMINAL BREATHING PRESENT. History of Present Illness HPI narrative: This patient is a 74-year-old female with a history of asthma presenting to the emergency department for evaluation of concern for difficulty breathing. Patient states she has been feeling bad for about 2 weeks now started feeling significantly worse today. She states that she just flew in from [place] today and when she got off the plane, she had a near syncopal event because she was having such a hard time breathing. She does note that she has been coughing up a lot of clear sputum. She is complaining of sternal chest pressure that is 5 out of 10. She is not on oxygen at home. No history of blood clots, clotting disorders, abdominal pain, vomiting, changes to bowel movements, or other concerns. Related Data Allergies Allergy/AdvReac Type Severity Reaction Status Date / Time prednisone (PREDNISONE) AdvReac Intermediate HALLUCINATI Verified 12/07/24 19:00 [facility] Disclaimer: The information contained in this section may have been updated after the patient was seen, as this information can be updated by other users. Medical History Tympanosclerosis Tinnitus of left ear Hearing loss of both ears Social History Smoking Status: Never smoker alcohol intake: never current occupational status: retired Travel in the last 8 weeks: None household members: spouse housing: house current occupational exposures/hazards: No caffeine: No Have you lived/traveled outside [place] in past 30 days?: No Contact w/someone who lives/traveled outside US past 30 days?: No Exposure to someone with infectious disease in past 14 days?: No Do you have a fever (greater than 100.4 F or 38 C)?: No Have you tested positive for COVID-19: No Exposed to someone with COVID-19 in past 14 days?: No Do you have a sore throat?: No Do you have a cough?: No Do you have any weakness?: No Do you have any diarrhea?: No Are you experiencing any unusual bleeding?: No Do you have any muscle aches/pain?: No Do you have any abdominal pain?: No Are you experiencing loss of taste or smell?: No Other Medical History Have you received the Flu Vaccine for this season: Yes Have you received the Pneumonia Vaccine: Yes ROS Obtained: Yes All systems reviewed & no additional complaints except as documented Physical Exam General General appearance: alert and in distress Head Head exam: atraumatic and normocephalic Eye Eye exam: Present normal appearance, PERRL and EOMI ENT ENT exam: Present normal exam, normal oropharynx, mucous membranes moist and normal external ear exam Neck Neck exam: Present normal inspection, full ROM and trachea midline; Absent tenderness Chest Chest inspection: Present normal inspection and symmetric chest wall rise; Absent tenderness Respiratory Respiratory exam: Present respiratory distress, wheezes, accessory muscle use, prolonged expiratory phase and other (Significant respiratory distress with tachypnea, tachycardia, hypoxia on room air, wheezing heard from across the room); Absent stridor Cardiovascular Cardiovascular exam: Present normal rhythm and tachycardia Abdominal Exam Abdominal exam: Present soft; Absent distention, tenderness or guarding Extremities Exam Extremities exam: Present normal inspection, full ROM and normal capillary refill; Absent tenderness or edema Back Exam Back exam: Present normal inspection and full ROM; Absent tenderness Neurological Exam Neurological exam: Present alert, oriented X3, CN II-XII intact and normal gait; Absent motor sensory deficit Psychiatric Psychiatric exam: Present normal affect and normal mood Skin Skin exam: Present warm and dry HEART Score HEART Score HEART Score assessment performed?: Yes History (anamnesis): Slightly suspicious ECG: Normal Age: >65 years Risk factors: 1-2 risk factors Troponin: </= normal limit HEART Score: 3 Critical Care Critical Care Time Critical Care Time: Yes Attestation: On 12/07/24, the high probability of a clinically significant, sudden or life threatening deterioration of the following system(s) required my full and direct attention, intervention and personal management. The time I documented below is in addition to time spent performing reported procedures but includes the following listed in this critical care notation. Total Time Total Critical Care Time: 60 Medical Decision Making Doug Inquiry Pt receiving controlled substance: No Vital Signs Vital Signs: 12/07/24 18:51 12/07/24 19:30 12/07/24 20:00 Temperature 99 F Temperature Source Oral Pulse Rate 132 H 131 H Pulse Rate [Left] 128 H Respiratory Rate 32 H 22 23 Blood Pressure 149/75 H 166/75 H Blood Pressure [Right Arm] 203/91 H Blood Pressure Mean 99 105 Blood Pressure Mean [Right Arm] 128 Blood Pressure Source [Right Arm] Automatic Cuff Blood Pressure Position [Right Arm] Sitting 02 Sat by Pulse Oximetry 90 L 98 100 Oxygen Delivery Method Room Air 12/07/24 20:01 12/07/24 21:47 Temperature 99.0 F Temperature Source Oral Pulse Rate 133 H 142 H Pulse Rate [Left] Respiratory Rate 27 H Blood Pressure 165/74 H Blood Pressure [Right Arm] Blood Pressure Mean Blood Pressure Mean [Right Arm] Blood Pressure Source [Right Arm] Blood Pressure Position [Right Arm] 02 Sat by Pulse Oximetry Oxygen Delivery Method Aerosol Mask Lab Data Labs: Lab Results 12/07/24 18:49: WBC 7.7, RBC 4.42, Hgb 13.1, Hct 41.2, MCV 93.2, MCH 29.6, MCHC 31.8, RDW 13.4, Plt Count 303, MPV 9.4, Neut % (Auto) 77.7, Lymph % (Auto) 9.6 L, Grimes % (Auto) 10.9 H, Eos % (Auto) 0.7, Baso % (Auto) 0.8, Neut # (Auto) 6.0, Lymph # (Auto) 0.7, Grimes # (Auto) 0.8, Eos # (Auto) 0.1, Baso # (Auto) 0.1, D-Dimer 0.64 H, Sodium 135 L, Potassium 3.8, Chloride 100, Carbon Dioxide 25, Anion Gap 13.8, BUN 13, Creatinine 0.90, Estimated Creat Clear 42, Estimated GFR 61, Est GFR ( Amer) 74, Glucose 113 H, Calcium 9.2, Magnesium 1.9, Total Bilirubin 0.3, AST 65 H, ALT 48, Alkaline Phosphatase 87, Troponin I < 0.01, NT-Pro-B Natriuret Pep 359, Total Protein 7.5, Albumin 4.7, Globulin 2.8, Albumin/Globulin Ratio 1.7, HCV Ab JAMES w/Rflx PCR Qn Negative, HIV Ag/Ab Combo Qual Negative 12/07/24 19:02: VBG pH 7.34, VBG pCO2 43.8, VBG pO2 46.0 H, VBG HCO3 22.9 L, VBG Total CO2 24.2, VBG O2 Saturation 81.7 H, VBG Base Excess -2.9 L, VBG Lactic Acid 2.3 H 12/07/24 19:23: SARS-CoV-2 (PCR) Not detected, Influenza A Untype (PCR) Detected A, Influenza Type B (PCR) Not detected 12/07/24 18:49 12/07/24 18:49 Response Orders (Tests/Meds): ED MEDICATIONS Generic Name Dose Route Start Last Admin Trade Name Freq PRN Reason Stop Dose Admin Acetaminophen 650 mg 12/07/24 21:06 Acetaminophen 325mg Tab PO 01/06/25 21:05 Q6HP PRN Fever or Mild Pain (1-3) Albuterol/Ipratropium 3 ml 12/07/24 20:59 Ipratropium/Albuterol 3 Ml [facility] 01/06/25 20:58 Q3HP PRN Wheezing Lactated Ringer's 1,000 mls @ 50 mls/hr 12/07/24 21:15 12/07/24 22:59 Lactated Ringer's 1000 Ml Bag IV 01/06/25 21:14 50 mls/hr .Q20H ABHINAV Administration Ibuprofen 600 mg 12/07/24 21:06 Ibuprofen 600 Mg Tablet PO 01/06/25 21:05 Q6HP PRN Fever or Mild Pain (1-3) Levalbuterol HCl 1.25 mg 12/07/24 22:52 Levalbuterol 1.25mg/3ml [facility] 01/06/25 22:51 Q6H PRN Wheezing Discontinued Medications Generic Name Dose Route Start Last Admin Trade Name Jeevanq PRN Reason Stop Dose Admin Albuterol/Ipratropium 9 ml 12/07/24 18:52 12/07/24 19:00 Ipratropium/Albuterol 3 Ml [facility] 12/07/24 18:53 9 ml ONCE ONE Administration Magnesium Sulfate 2 gm in 50 mls @ 50 mls/hr 12/07/24 18:52 12/07/24 19:00 Magnesium Sulfate 2gm/50ml Premix IV 12/07/24 19:51 50 mls/hr ONCE ONE Administration Doxycycline Hyclate 100 mg/ 250 mls @ 166.667 mls/hr 12/07/24 20:59 12/07/24 21:07 Sodium Chloride IV 12/07/24 21:00 166.667 mls/hr ONCE ONE Administration Lactated Ringer's 1,000 mls @ 999 mls/hr 12/07/24 21:03 12/07/24 21:07 Lactated Ringer's 1000 Ml Bag IV 12/07/24 22:03 999 mls/hr .Q1H1M ONE Administration Iopamidol 70 ml 12/07/24 20:25 12/07/24 20:26 Iopamidol-370 (76%);100ml Bottle IV 12/07/24 20:26 70 ml ONCE ONE Administration Levalbuterol HCl 12.5 mg 12/07/24 19:39 12/07/24 20:00 Levalbuterol 1.25mg/3ml [facility] 12/07/24 19:40 12.5 mg ONCE ONE Administration Methylprednisolone Sodium Succinate 125 mg 12/07/24 18:52 12/07/24 19:00 Methylprednisolone Sod Succ 125mg Vial IV 12/07/24 18:53 125 mg ONCE ONE Administration Metoprolol Tartrate 25 mg 12/07/24 23:00 12/07/24 22:58 Metoprolol Tartrate 25mg Tablet PO 12/07/24 23:01 25 mg ONCE ONE Administration Oseltamivir Phosphate 75 mg 12/07/24 20:03 12/07/24 20:08 Oseltamivir 75mg Capsule PO 12/07/24 20:04 75 mg ONCE ONE Administration Sodium Chloride 50 ml 12/07/24 20:25 12/07/24 20:25 0.9 % Sodium Chloride 50 Ml Vial IV 12/07/24 20:26 50 ml ONCE ONE Administration Sodium Chloride 10 ml 12/07/24 20:25 12/07/24 20:26 Sodium Chloride 0.9% 10ml Syr (Rad Only) IV 12/07/24 20:26 10 ml ONCE ONE Administration ORDERS Category Date Time Status CT angio chest PE protocol Stat Cat Scan 12/07/24 20:08 Completed Consult to Physician [CONS] Routine Cons 12/07/24 20:59 Ordered CXR --portable [XR chest portable] Stat Exams 12/07/24 18:52 Completed BNP [NT Pro Brain Natriuretic Pep.] Stat Lab 12/07/24 18:49 Completed Complete Blood Count Auto Diff Stat Lab 12/07/24 18:49 Completed Comprehensive Metabolic Panel Stat Lab 12/07/24 18:49 Completed D-Dimer Stat Lab 12/07/24 18:49 Completed HIV Combo Stat Lab 12/07/24 18:49 Completed Hepatitis C Ab Qual. W/ RFX Stat Lab 12/07/24 18:49 Completed MAG [Magnesium] Stat Lab 12/07/24 18:49 Completed Rapid PCR Covid and Flu A/B Stat Lab 12/07/24 19:23 Completed Trop I [Troponin I] Stat Lab 12/07/24 18:49 Completed Troponin I Q3H Lab 12/07/24 23:15 Completed Troponin I Q3H Lab 12/08/24 01:00 Ordered Blood Culture Stat Micro 12/07/24 18:49 Ordered VBG [Venous Blood Gas] Stat RT 12/07/24 19:02 Completed ECG Data Tracing #1: Attestation: I reviewed this ECG and interpreted as documented below: ECG Narrative: Sinus tachycardia. Motion artifact significantly degrades study given patient's respiratory distress. No obvious acute STEMI within limitations of EKG ECG initial impression date: 12/07/24 ECG initial impression time: 18:49 MDM Narrative Medical Decision Narrative: In summary, this patient is a 74-year-old female presenting to the Emergency Department for evaluation of difficulty breathing. Differential diagnoses considered include but are not limited to asthma exacerbation, COPD exacerbation, respiratory failure, pneumonia, PE, ACS, dysrhythmia, pneumonia, sepsis. Ruling out the most morbid conditions drove assessment. It should be noted patient's history includes asthma which is not at goal therapy. This complicates all aspects of care by increasing patient's risk for morbidity. On exam, the patient is in obvious respiratory distress with tachypnea, tachycardia, hypoxia, significantly increased work of breathing with accessory muscle use and prolonged expiratory phase, wheezing heard throughout both inspiratory and expiratory. Patient was given DuoNebs x 3, IV methylprednisolone, 2 g of IV magnesium upon arrival given significant respiratory distress and status asthmaticus. Workup included lab evaluation to evaluate for infectious, metabolic, cardiac causes. D-dimer was obtained to evaluate for potential PE. I independently interpreted chest x-ray prior to the radiologist read and noted no obvious acute focal consolidation. Please see their read for final interpretation. Labs were obtained that demonstrated reassuring CBC without significant leukocytosis, D-dimer is mildly elevated, VBG demonstrates mildly elevated lactic acid but no significant respiratory acidosis, troponin negative, chemistry otherwise reassuring. CT PE was obtained given elevated D-dimer, but did not demonstrate PE. She does have peribronchial cuffing/inflammation On multiple subsequent reassessments, the patient continues to have significantly increased work of breathing. She also is persistently tachycardic. She looks a little bit clinically dry, so I gave her a liter bolus of IV fluids. I did not give full sepsis bolus, as she is in respiratory distress and I feel volume overload could be harmful to her. She was given DuoNebs x 3 as above, IV methylprednisolone, IV magnesium, an hour of continuous Xopenex, and she had slightly improved work of breathing but is still very tachycardic, tachypneic, and very wheezy. She does have improved aeration, however she still has a long way to go I feel. I suspect this is likely viral in the setting of flu, but given 2 weeks duration as well as significant peribronchial cuffing on CT, I decided to obtain blood cultures and administer doxycycline. She does not have a PE noted on CT. She did test positive for flu A. Ultimately given her persistent respiratory distress, I feel the patient would benefit from admission for continued monitoring. I had an interactive discussion with Dr. Jara who accepted the patient on behalf of Dr. Manzanares. Patient was admitted in stable condition
[2024-12-07 19:55] LABS: Influenza A, PCR Detected (NotDetected)
[2024-12-07 20:00] VITALS: BP 166/75; PULSE 131; RESP 23; O2SAT 100
[2024-12-07] MEDS: LEVALBUTEROL 1.25MG/3ML NEB 12.5 MG IH (20:00)
[2024-12-07 20:01] VITALS: PULSE 133
[2024-12-07] MEDS: OSELTAMIVIR 75MG CAPSULE 75 MG PO (20:08)
--- NOTE | 2024-12-07 20:08 | CT_ITS ---
PROCEDURE INFORMATION: Exam: CTA Chest With Contrast Exam date and time: 12/07/2024 8:21 PM Age: 74 years old Clinical indication: Shortness of breath; Additional info: Resp distress/failure TECHNIQUE: Imaging protocol: Computed tomographic angiography of the chest with contrast. Exam focused on the arteries. 3D rendering (Not supervised by radiologist): MIP and/or 3D reconstructed images were created by the technologist. Radiation optimization: All CT scans at this facility use at least one of these dose optimization techniques: automated exposure control; mA and/or kV adjustment per patient size (includes targeted exams where dose is matched to clinical indication); or iterative reconstruction. Contrast material: ISOVUE; Contrast volume: 70 ml; Contrast route: INTRAVENOUS (IV); COMPARISON: CR XR CHEST PORTABLE 12/07/2024 7:03 PM FINDINGS: Pulmonary arteries: No acute pulmonary emboli. Aorta: Unremarkable. No aortic aneurysm. No aortic dissection. Lungs: Moderate bilateral upper and lower lobe bronchial wall thickening, compatible with reactive airway disease or bronchitis. Pleural spaces: Unremarkable. No pneumothorax. No pleural effusion. Heart: Unremarkable. No cardiomegaly. No pericardial effusion. Lymph nodes: Calcified right hilar and subcarinal lymph nodes, compatible with prior granulomatous disease. Few small noncalcified lymph nodes within the mediastinum, likely reactive, but nonspecific. Diaphragm: Small-sized hiatal hernia. Liver: Hepatic calcification, compatible with prior granulomatous disease. Spleen: Splenic calcifications, compatible with prior granulomatous disease. Adrenal glands: Minimal left adrenal hyperplasia. Bones/joints: Unremarkable. No acute fracture. Soft tissues: Unremarkable. IMPRESSION: 1. No acute pulmonary emboli. 2. Moderate bilateral upper and lower lobe bronchial wall thickening, compatible with reactive airway disease or bronchitis.
[2024-12-07 20:14] LABS: D-Dimer 0.64 ug/mL (0.0-0.5)
[2024-12-07 20:21] LABS: HIV Combo NEGATIVE (Negative)
[2024-12-07] MEDS: 0.9 % SODIUM CHLORIDE 50 ML VIAL IV (20:25)
[2024-12-07] MEDS: SODIUM CHLORIDE 0.9% 10ML SYR (RAD ONLY) 10 ML IV (20:26)
[2024-12-07] MEDS: IOPAMIDOL-370 (76%);100ML BOTTLE 70 ML IV (20:26)
--- NOTE | 2024-12-07 20:32 | PC.NURSE ---
rounded on pt. pt voices no needs. call light in reach.
--- NOTE | 2024-12-07 20:59 | PC.NURSE ---
rounded on pt at this time. Pt reports she feels like she is breathing better. MD Duncan at bedside. Pt is agreeable to admission. Call light in reach. Dr Jara paged at this time.
--- NOTE | 2024-12-07 21:01 | PC.NURSE ---
MD Duncan on the phone with MD Jara at this time
[2024-12-07] MEDS: DOXYCYCLINE HYCLATE 100 MG in 0.9 % SODIUM CHLORIDE 250 ML 166.667 MG IV (21:07)
[2024-12-07] MEDS: LACTATED RINGERS 1000ML 1,000 ML 999 ML IV (21:07)
--- NOTE | 2024-12-07 21:43 | PC.NURSE ---
report called to dylan alatorre RN
[2024-12-07 21:47] VITALS: BP 165/74; PULSE 142; RESP 27; TEMP 37.2; O2SAT 100
--- NOTE | 2024-12-07 22:01 | PC.NURSE ---
Pt unable to go upstairs at tis time. RN is working a critical patient at this time.
--- NOTE | 2024-12-07 22:27 | PC.NURSE ---
Pt arrived to floor via stretcher @22:26
[2024-12-07 22:35] VITALS: BP 169/93; PULSE 140; PULSE 148; RESP 28; O2SAT 94
[2024-12-07 22:51] LABS: Hepatitis C Ab Qual. W/ RFX NEGATIVE (Negative)
[2024-12-07] MEDS: METOPROLOL TARTRATE 25MG TABLET 25 MG PO (22:58)
[2024-12-07] MEDS: LACTATED RINGERS 1000ML 1,000 ML 50 ML IV (22:59)
[2024-12-07 23:12] LABS: Reflex Lactic Add Lactic Reflex
[2024-12-07 23:41] LABS: Lactic Acid Follow Up (RFLX 1) 9.6 mmol/L (0.7-2.1)
--- NOTE | 2024-12-07 23:46 | PC.NURSE ---
Contacted Marek at this time to report critical lactate, no new orders at this time. Also, updated on HR of 132 consistently, no new orders.
[2024-12-07 23:51] LABS: Troponin I < 0.01 ng/ml (0.00-0.034)
[2024-12-08] VITALS (14 sets, daily range): BP systolic 115–153; BP diastolic 61–75; PULSE 90–130; RESP 14–19; TEMP 36.6–37.2; O2SAT 91–94; BMI 26.6
--- NOTE | 2024-12-08 00:22 | PC.NURSE ---
Patient states she takes a vitamin at home for macular degeneration, and she takes gabapentin but unsure of dosage, no record in external of this. Completed med rec based on patient and external.
--- NOTE | 2024-12-08 01:06 | PC.NURSE ---
Patient daughter wanted to put her number on chart, Jeanne Stover [phone].
[2024-12-08 01:18] LABS: Reflex Lactic (2 hrs) Add Lactic Reflex
[2024-12-08 01:30] LABS: Lactic Acid Follow up (RFLX 2) 8.7 mmol/L (0.7-2.1)
[2024-12-08 01:46] LABS: Troponin I < 0.01 ng/ml (0.00-0.034)
--- NOTE | 2024-12-08 02:05 | PC.NURSE ---
Paged Marek critical lactate, no news orders. Late entry. [id number]
[2024-12-08] MEDS: LEVALBUTEROL 1.25MG/3ML NEB 1.25 MG IH ×2 (04:24→19:52)
--- NOTE | 2024-12-08 04:41 | PC.NURSE ---
Alert and oriented. Patient has been room air throughout the night, O2 sat >90%. Patient has not had any complaints. Ambulates to the restroom with standby assist. 0430 patient got up to restroom and once arriving back to bed, patient audibly wheezing and SOA, PRN neb given and patient now feeling better. Lung sounds inspiratory and expiratory wheezing in all greene. IV fluids. Call light in reach.
--- NOTE | 2024-12-08 09:33 | P.HP_ITS ---
History of Present Illness *Admission Date: 12/07/24 *Reason for visit:: Difficulty breathing *History of present illness: Mrs. Schaeffer is a 74 year old female patient of [facility], with a history of asthma. She presented to [facility] ER last night complaining of difficulty breathing. She states she started noticing some shortness of breath with exertion a few weeks ago but felt well enough to go to [place] for vacation last week. A little over a day ago she states her breathing troubles got worse and she began to cough up clear sputum. She flew back yesterday and states she almost passed out when deboarding the plane due to shortness of breath. She had some subjective fever and body aches yesterday, unknown sick contacts. She states she had been taking all of her medications as prescribed. [facility] Disclaimer: The information contained in this section may have been updated after the patient was seen, as this information can be updated by other users. Medical History Esophageal dilatation Left sided sciatica Lumbar facet arthropathy Lumbar disc disease HTN (hypertension) Vitamin D deficiency Vitamin B12 deficiency Esophageal stricture Osteopenia Arthritis of left knee Macular degeneration History of gastroesophageal reflux (GERD) Asthma Tympanosclerosis Tinnitus of left ear Hearing loss of both ears Surgical History H/O esophagogastroduodenoscopy H/O tubal ligation History of knee replacement History of tonsillectomy H/O: hysterectomy Family History (Updated 12/08/24 @ 09:42 by Sadi Manzanares MD) Coronary artery disease Cancer Social History Smoking Status: Never smoker alcohol intake: never current occupational status: retired Travel in the last 8 weeks: None household members: spouse housing: house current occupational exposures/hazards: No caffeine: No Have you lived/traveled outside US in past 30 days?: No Contact w/someone who lives/traveled outside US past 30 days?: No Exposure to someone with infectious disease in past 14 days?: No Do you have a fever (greater than 100.4 F or 38 C)?: No Have you tested positive for COVID-19: No Exposed to someone with COVID-19 in past 14 days?: No Do you have a sore throat?: No Do you have a cough?: No Do you have any weakness?: No Are you experiencing any nausea/vomitting?: No Do you have any diarrhea?: No Are you experiencing any unusual bleeding?: No Do you have any muscle aches/pain?: No Do you have any abdominal pain?: No Are you experiencing loss of taste or smell?: No Other Medical History Have you received the Flu Vaccine for this season: No Have you received the Pneumonia Vaccine: Yes Review of Systems Constitutional Constitutional: Reports fever(s) ENT Ears, Nose, Mouth, and Throat: Denies dizziness *Cardiovascular Cardiovascular: Reports chest pain and Reports dyspnea *Respiratory Respiratory: Reports as per HPI, Reports chest congestion, Reports cough and Reports dyspnea *Gastrointestinal Gastrointestinal: Denies abdominal pain *Genitourinary Genitourinary: Denies difficulty voiding *Musculoskeletal Musculoskeletal: Denies arthralgias *Neurologic Neurologic: Denies dizziness Meds Home Medications and Allergies Home Medications ?Medication ?Instructions ?Recorded ?Confirmed ?Type albuterol sulfate 2.5 mg/3 mL 2.5 mg inhalation Q6HP PRN SOA 12/08/24 12/08/24 History (0.083 %) solution for nebulization albuterol sulfate 90 mcg/actuation 90 mcg inhalation Q4HP PRN 12/08/24 12/08/24 History aerosol inhaler Shortness Of Breath cyclobenzaprine 5 mg tablet 5 mg PO DAILY PRN Muscle Spasm 12/08/24 12/08/24 History New Prescriptions to Start Prescriptions: Allergies Allergy/AdvReac Type Severity Reaction Status Date / Time prednisone (PREDNISONE) AdvReac Intermediate HALLUCINATI Verified 12/07/24 19:00 ONS Exam Data for Last 24 hours Vital signs and Labs for Last 24 Hours: Temp Pulse Resp BP Pulse Ox O2 Del Method 97.8 F 100 H 15 115/61 91 L Room Air 12/08/24 07:56 12/08/24 08:00 12/08/24 06:00 12/08/24 06:00 12/08/24 06:00 12/08/24 08:00 Laboratory Results - last 24 hr 12/07/24 18:49: WBC 7.7, RBC 4.42, Hgb 13.1, Hct 41.2, MCV 93.2, MCH 29.6, MCHC 31.8, RDW 13.4, Plt Count 303, MPV 9.4, Neut % (Auto) 77.7, Lymph % (Auto) 9.6 L , [place] % (Auto) 10.9 H, Eos % (Auto) 0.7, Baso % (Auto) 0.8, Neut # (Auto) 6.0, Lymph # (Auto) 0.7, [place] # (Auto) 0.8, Eos # (Auto) 0.1, Baso # (Auto) 0.1, D- Dimer 0.64 H, Sodium 135 L, Potassium 3.8, Chloride 100, Carbon Dioxide 25, Anion Gap 13.8, BUN 13, Creatinine 0.90, Estimated Creat Clear 42, Estimated GFR 61, Est GFR ( Amer) 74, Glucose 113 H, Calcium 9.2, Magnesium 1.9, Total Bilirubin 0.3, AST 65 H, ALT 48, Alkaline Phosphatase 87, Troponin I < 0.01, NT-Pro-B Natriuret Pep 359, Total Protein 7.5, Albumin 4.7, Globulin 2.8, Albumin/Globulin Ratio 1.7, HCV Ab JAMES w/Rflx PCR Qn Negative, HIV Ag/Ab Combo Qual Negative 12/07/24 19:02: VBG pH 7.34, VBG pCO2 43.8, VBG pO2 46.0 H, VBG HCO3 22.9 L, VBG Total CO2 24.2, VBG O2 Saturation 81.7 H, VBG Base Excess -2.9 L, VBG Lactic Acid 2.3 H 12/07/24 19:23: SARS-CoV-2 (PCR) Not detected, Influenza A Untype (PCR) Detected A, Influenza Type B (PCR) Not detected 12/07/24 23:15: Lactate 9.6 H, Troponin I < 0.01 12/08/24 01:05: Lactate 8.7 H, Troponin I < 0.01 I & O for Last 24 hours: Intake & Output 12/05/24 12/06/24 12/07/24 12/08/24 23:59 23:59 23:59 23:59 Intake Total 1040 / 1040 Output Total 0 / 0 0 / 0 Balance 0 / 0 1040 / 1040 Weight 124 lb 132 lb 1.6 oz Constitutional Constitutional: no acute distress *Routine HEENT Exam Head: Present normocephalic Eye: Present EOMI and PERRL ENT: Present mucous membranes moist *Routine Neck Exam Neck: Present supple; Absent lymphadenopathy *Routine Respiratory Exam Respiratory: Present rhonchi, wheezes and diminished air movement *Routine Cardiovascular Exam Cardiovascular: Present RRR and tachycardia *Routine Abdominal Exam Abdominal: Present soft and normoactive bowel sounds; Absent tenderness *Routine Rectal Exam Rectal:: deferred *Routine Genitalia Exam Genitalia:: deferred *Routine Extremities Exam Extremities: Absent cyanosis, clubbing or edema *Routine Skin Exam Skin: Present warm; Absent rash *Routine Neurological Exam Neurological: Present alert and oriented X3 Assessment and Plan *Assessment and plan (1) Influenza due to influenza virus, type A, human: Status: Acute Category: Medical Code(s): J10.1 - Influenza due to other identified influenza virus with other respiratory manifestations (2) Acute respiratory failure: Status: Acute Category: Medical Code(s): J96.00 - Acute respiratory failure, unspecified whether with hypoxia or hypercapnia (3) Asthma with status asthmaticus: Status: Acute Category: Medical Code(s): J45.902 - Unspecified asthma with status asthmaticus (4) Elevated serum lactate dehydrogenase: Status: Acute Category: Medical Code(s): R74.02 - Elevation of levels of lactic acid dehydrogenase [LDH] (5) Tachycardia: Status: Acute Category: Medical Code(s): R00.0 - Tachycardia, unspecified Plan Patient admitted for further evaluation and management of her acute respiratory failure due to asthma ands influenza. She feels a little better this morning, continue current treatment. Above listed home medication list is incomplete.
[2024-12-08] MEDS: guaiFENesin 600 MG TAB.ER.12H 1200 MG PO ×2 (12:06→20:09)
[2024-12-08] MEDS: METHYLPREDNISOLONE SOD SUCC 125MG VIAL 125 MG IV ×2 (12:06→17:41)
[2024-12-08] MEDS: ENOXAPARIN 40MG/0.4ML SYRINGE 40 MG SUBCUT (12:06)
[2024-12-08] MEDS: OSELTAMIVIR 75MG CAPSULE 75 MG PO (12:06)
--- NOTE | 2024-12-08 13:23 | PC.NURSE ---
PT IS RESTING IN BED. ALERT AND ORIENTED X4. EATING AND DRINKING WELL. AMBULATES TO THE BATHROOM. LUNG SOUNDS DIMINISHED WITH SCATTERED WHEEZES. ABDOMEN SOFT/NON TENDER WITH ACTIVE BOWEL SOUNDS. O2 SATURATION 90-95% ON ROOM AIR. WILL CONTINUE TO MONITOR.
--- NOTE | 2024-12-08 14:37 | HMH.PHAINT1 ---
Pharmacy Intervention Comments: MEDICATION RECONCILIATION COMPLETE VIA PHONE CALL TO CLINIC PHARMACY. PATIENT'S FILL HISTORY WAS LIMITED AND TEDDY REPORT RETURNED NO RESULTS. DR. DC DID CALL TO ASK WHY THE PATIENT'S MEDICATION LIST APPEARED INCOMPLETE ON 12/08/24 AT 09:44 RELATIVE TO THE LIST HE HAS IN THE OFFICE. I STATED THAT THE PATIENT'S EXTERNAL PHARMACY FILL HISTORY WAS MINIMAL AND I DID ASK FOR A LIST FROM HIS OFFICE TO BE FAXED OVER, BUT DR. DC STATED HE WAS UNABLE TO FAX THE LIST DUE TO NOT BEING VERY TECHNOLOGICALLY SAVVY. I DID CALL AND SPEAK WITH PATIENT'S NURSE, NANCY WILKES, AND REQUESTED PATIENT'S BRING IN HER MEDICATION BOTTLES BUT THIS IS PENDING. PER NANCY WILKES, PATIENT STATES SHE TAKES ALL OF HER MEDICATIONS NEEDED DAILY, WITH THE EXCEPTION BEING THE BREZTRI INHALER WHICH WAS CONSISTENTLY USED. I SUBSEQUENTLY CALLED CLINIC PHARMACY (WHERE THE PATIENT STATES SHE FILLS HER MEDICATIONS) BUT THEY HAD NOT FILLED THE GABAPENTIN SINCE SEPTEMBER 2023, OMEPRAZOLE SINCE FEBRUARY 2024, ALBUTEROL SINCE SEPTEMBER 2024, AND NO FILL HISTORY FOR BREZTRI.
[2024-12-08] MEDS: LACTATED RINGERS 1000ML 1,000 ML 50 ML IV (17:41)
[2024-12-08] MEDS: PANTOPRAZOLE 40MG TABLET 40 MG PO (20:09)
[2024-12-08] MEDS: OSELTAMIVIR PHOSPHATE 6MG/ML ORAL SUSP 60ML 30 MG PO (20:10)
[2024-12-08] MEDS: HYDROCODONE PO (21:27)
[2024-12-08] MEDS: [UNRECOGNIZED DRUG - OTHER] PO (21:27)
[2024-12-09] VITALS (9 sets, daily range): BP systolic 133–152; BP diastolic 60–85; PULSE 63–112; RESP 17–24; TEMP 36.4–36.8; O2SAT 92–95; BMI 25.9
[2024-12-09] MEDS: METHYLPREDNISOLONE SOD SUCC 125MG VIAL 125 MG IV (01:09)
[2024-12-09] MEDS: LEVALBUTEROL 1.25MG/3ML NEB 1.25 MG IH ×3 (02:56→22:16)
--- NOTE | 2024-12-09 04:06 | PC.NURSE ---
Placed patient on 2L NC at this time due to patient O2 sat maintaining 88%.
--- NOTE | 2024-12-09 06:30 | PC.NURSE ---
Addendum entered by Betty Piña RN 12/09/24 06:43: Patient placed back on 2L NC at this time. O2 sat maintained 89% while sleeping. Original Note: Alert and oriented. Placed on 2L NC later in shift, Lung sounds wheezing. Patient requested cough medication once per jan. Pt had no complaints through night. Pt did have some trouble sleeping, but stated she still rested well. Placed patient back on room air at this time, O2 sat 90%. Call light in reach.
--- NOTE | 2024-12-09 07:41 | P.PN_ITS ---
Subjective *Date: 12/09/24 *Time: 07:41 Interval history: Patient feels about the same this morning. She felt like she had a fever overnight and NC oxygen was started overnight. Medical Exam Vital signs and Labs for Last 24 Hours: Vital Signs Temp Pulse Pulse Resp BP Pulse Ox O2 Del Method 12/09/24 06:39 Nasal Cannula 12/09/24 05:00 Nasal Cannula 12/09/24 04:00 110 H 12/09/24 04:00 98.2 F 112 H 17 133/60 95 Room Air 12/09/24 03:00 Room Air 12/09/24 01:00 Room Air 12/09/24 00:00 85 12/08/24 23:56 97.8 F 102 H 19 131/75 91 L Room Air 12/08/24 23:00 Room Air 12/08/24 21:00 Room Air 12/08/24 20:00 107 H 14 153/69 H 94 L Room Air 12/08/24 20:00 112 H Room Air 12/08/24 20:00 110 H 12/08/24 19:49 98.9 F 12/08/24 19:28 97.9 F 12/08/24 18:35 Room Air 12/08/24 17:00 Room Air 12/08/24 16:00 98.2 F 12/08/24 16:00 90 12/08/24 15:00 Room Air 12/08/24 12:39 Room Air 12/08/24 12:00 110 H 12/08/24 12:00 97.9 F 12/08/24 10:53 Room Air 12/08/24 08:00 Room Air 12/08/24 08:00 100 H 12/08/24 07:56 97.8 F 12/08/24 07:45 Room Air O2 Flow Rate 12/09/24 06:39 2 12/09/24 05:00 2 12/09/24 04:00 12/09/24 04:00 12/09/24 03:00 12/09/24 01:00 12/09/24 00:00 12/08/24 23:56 12/08/24 23:00 12/08/24 21:00 12/08/24 20:00 12/08/24 20:00 12/08/24 20:00 12/08/24 19:49 12/08/24 19:28 12/08/24 18:35 12/08/24 17:00 12/08/24 16:00 12/08/24 16:00 12/08/24 15:00 12/08/24 12:39 12/08/24 12:00 12/08/24 12:00 12/08/24 10:53 12/08/24 08:00 12/08/24 08:00 12/08/24 07:56 12/08/24 07:45 Intake and Output 12/08/24 12/08/24 12/09/24 15:59 23:59 07:59 Intake Total 990 / 2229 679 / 2229 504 / 504 Output Total 0 / 0 0 / 0 Balance 990 / 2229 679 / 2229 504 / 504 Intake: Intake, Oral Amount 990 / 1090 100 / 1090 Intake, Total IV Amount 579 / 1139 504 / 504 Lactated Ringers 1000ML 1,000 579 / 889 504 / 504 ml @ 50 mls/hr IV .Q20H [facility] Rx# :[id number] Output: Output, Urine Amount 0 / 0 0 / 0 Other: Number of Unmeasured Voids 1 1 Weight 128 lb 14.4 oz Patient Weight 12/09/24 23:59 Weight 128 lb 14.4 oz I & O for Labs for Last 24 Hours: Intake & Output 12/06/24 12/07/24 12/08/24 12/09/24 23:59 23:59 23:59 23:59 Intake Total 2229 / 2229 504 / 504 Output Total 0 / 0 0 / 0 Balance 0 / 0 2229 / 2229 504 / 504 Weight 124 lb 132 lb 1.6 oz 128 lb 14.4 oz Microbiology Reports for the Last 24 Hours: Microbiology 12/08/24 00:10 Blood Blood Culture - Preliminary NO GROWTH AFTER 24 HOURS 12/07/24 18:49 Blood Blood Culture - Preliminary NO GROWTH AFTER 24 HOURS Constitutional: Present no acute distress Respiratory: Present rhonchi, wheezes and diminished air movement Cardiac: Present Reg Rate and Rhythm and Tachycardia GI: Present normal bowel sounds; Absent tenderness Extremities: Present normal inspection and full ROM Skin: Present intact; Absent erythema Neuro: Present Grossly Intact and moves all extremities Assessment and Plan *Assessment and plan (1) Influenza due to influenza virus, type A, human: Status: Acute Category: Medical Code(s): J10.1 - Influenza due to other identified influenza virus with other respiratory manifestations (2) Acute respiratory failure: Status: Acute Category: Medical Code(s): J96.00 - Acute respiratory failure, unspecified whether with hypoxia or hypercapnia (3) Asthma with status asthmaticus: Status: Acute Category: Medical Code(s): J45.902 - Unspecified asthma with status asthmaticus (4) Elevated serum lactate dehydrogenase: Status: Acute Category: Medical Code(s): R74.02 - Elevation of levels of lactic acid dehydrogenase [LDH] (5) Tachycardia: Status: Acute Category: Medical Code(s): R00.0 - Tachycardia, unspecified Plan Plan to decrease steroid dose today and will start low dose Metoprolol, recheck labs tomorrow.
[2024-12-09] MEDS: ENOXAPARIN 40MG/0.4ML SYRINGE 40 MG SUBCUT (09:13)
[2024-12-09] MEDS: guaiFENesin 600 MG TAB.ER.12H 1200 MG PO ×2 (09:13→22:10)
[2024-12-09] MEDS: METHYLPREDNISOLONE SOD SUCC 125MG VIAL 80 MG IV ×2 (09:13→16:14)
[2024-12-09] MEDS: METOPROLOL TARTRATE 25MG TABLET 25 MG PO ×2 (09:14→22:10)
[2024-12-09] MEDS: OSELTAMIVIR PHOSPHATE 6MG/ML ORAL SUSP 60ML 30 MG PO ×2 (09:14→22:10)
[2024-12-09] MEDS: IPRATROPIUM/ALBUTEROL 3 ML NEB IH (12:02)
--- NOTE | 2024-12-09 18:04 | PC.NURSE ---
pt resting supine in bed with family at bedside. pt was weaned to RA this shift and has tolerated well with sats >90%. new IV plaved in RAC due to infiltration of fluids into other site. pt still has wheezes present. breathing treatments given per jan. pt verbalizes that she feels that these are very helpful. per mulberry fluids dc and steroid dose decreased this shift. no complaints of pain. pt has no needs at this time. call light within reach.
[2024-12-09] MEDS: PANTOPRAZOLE 40MG TABLET 40 MG PO (22:10)
[2024-12-10] VITALS (11 sets, daily range): BP systolic 125–158; BP diastolic 66–83; PULSE 75–103; RESP 16–21; TEMP 36.3–36.7; O2SAT 92–95; BMI 26.6; BMI 26.5
[2024-12-10] MEDS: METHYLPREDNISOLONE SOD SUCC 125MG VIAL 80 MG IV ×3 (01:01→17:23)
[2024-12-10] MEDS: ACETAMINOPHEN 325MG TAB 650 MG PO (01:02)
--- NOTE | 2024-12-10 05:41 | PC.NURSE ---
Alert and oriented. Headache one time, treated per jan. Patient did request breathing treatment, treated per jan. Patient is audibly wheezing when getting back from restroom. Lung sounds wheezing, remained on room air throughout the night. Call light in reach.
[2024-12-10 07:06] LABS: Basophils % 0.1 % (0.1-2.0); Hematocrit 35.9 % (37.0-47.0); Hemoglobin 11.9 g/dL (12.2-16.2); Lymphocytes # 0.5 K/mm3 (0.7-4.5); Mean Corpuscular HGB Conc 33.1 g/dL (31.8-35.4); Mean Corpuscular Volume 93.5 fl (81-99); Mean Platelet Volume 10.6 fl (7.4-10.4); Monocytes # 0.5 K/mm3 (0.1-1.0); Neutrophils # 15.1 K/mm3 (1.8-7.8); Neutrophils % 93.3 % (37.0-80.0); Platelet Count 303 K/mm3 (142-424); Red Blood Count 3.84 M/mm3 (4.20-5.40); Red Cell Distribution Width 14.1 % (11.5-17.5); White Blood Count 16.2 K/mm3 (4.8-10.8)
[2024-12-10 07:19] LABS: MANUAL DIFFERENTIAL MANUAL DIFFERENTIAL (MANUAL DIFF)
[2024-12-10 07:25] LABS: Anion Gap 12.8 mEq/L (5-15); Blood Urea Nitrogen 27 mg/dl (7-17); Calcium 8.6 mg/dl (8.4-10.2); Carbon Dioxide 24 mmol/L (22.0-30.0); Chloride 105 mmol/L (98-107); Creatinine Clearance Estimated 45 mL/min (50-200); Estimated Glomerular Filt Rate 54 ml/min (>60); GFR (African American) 65 ML/MIN (>60); Glucose 138 mg/dl (74-100); Potassium 3.8 mmoL/L (3.5-5.1); Sodium 138 mmol/L (136-145)
--- NOTE | 2024-12-10 08:35 | P.PN_ITS ---
Subjective *Date: 12/10/24 *Time: 08:48 Interval history: Patient continues to wheeze and is short of breath.She continues with frequent cough sometimes productive of clear sputum. She is eating a little better. She is voiding QS and bowels have moved. She denies pain. She does ambulate to the bathroom but continues to wheeze with more exertional shortness of breath.Heart rate has slowed in the 80s today White blood cell count this morning is 16,200 with a hemoglobin of 11.9 hemat ocrit of 35.9 blood chemistry sure normal electrolytes with a BUN of 27 and creatinine of 1 Medical Exam Vital signs and Labs for Last 24 Hours: Vital Signs Temp Pulse Pulse Resp BP Pulse Ox O2 Del Method 12/10/24 07:18 81 19 152/83 H 93 L Room Air 12/10/24 06:54 Room Air 12/10/24 05:00 Room Air 12/10/24 04:00 85 12/10/24 04:00 97.9 F 96 H 21 151/80 H 12/10/24 03:00 Room Air 12/10/24 01:00 Room Air 12/10/24 00:00 80 12/10/24 00:00 97.7 F 81 19 125/66 92 L Room Air 12/09/24 22:54 Room Air 12/09/24 22:16 84 12/09/24 22:16 89 12/09/24 21:00 Room Air 12/09/24 20:00 90 12/09/24 20:00 Room Air 12/09/24 20:00 98.1 F 98 H 19 152/85 H 94 L 12/09/24 18:50 Room Air 12/09/24 17:00 Room Air 12/09/24 16:00 98.3 F 96 H 18 138/78 93 L Room Air 12/09/24 16:00 93 H 12/09/24 15:00 Room Air 12/09/24 13:00 Room Air 12/09/24 12:02 70 12/09/24 12:02 80 12/09/24 12:00 88 12/09/24 12:00 98.1 F 91 H 23 146/79 H 92 L Room Air 12/09/24 11:14 87 12/09/24 11:14 63 12/09/24 11:14 92 L Room Air 12/09/24 11:00 Room Air 12/09/24 09:00 Room Air Intake and Output 12/09/24 12/10/24 12/10/24 19:59 03:59 11:59 Intake Total 480 / 480 300 / 780 Output Total 0 / 0 0 / 0 Balance 480 / 480 300 / 780 0 / 780 Intake: Intake, Oral Amount 480 / 480 300 / 780 Output: Output, Urine Amount 0 / 0 0 / 0 Other: Number of Voids 0 Number of Unmeasured Voids 2 Number of Bowel Movements 1 Weight 131 lb 14.4 oz Patient Weight 12/10/24 11:59 Weight 131 lb 14.4 oz Laboratory Results - last 24 hr 12/10/24 06:00: WBC 16.2 H D, RBC 3.84 L, Hgb 11.9 L, Hct 35.9 L, MCV 93.5, MCH 31.0, MCHC 33.1, RDW 14.1, Plt Count 303, MPV 10.6 H, Neut % (Auto) 93.3 H, Lymph % (Auto) 3.0 L, [place] % (Auto) 3.0, Eos % (Auto) 0.0 L, Baso % (Auto) 0.1, Neut # (Auto) 15.1 H, Lymph # (Auto) 0.5 L, [place] # (Auto) 0.5, Eos # (Auto) 0.0, Baso # (Auto) 0.0, Sodium 138, Potassium 3.8, Chloride 105, Carbon Dioxide 24, Anion Gap 12.8, BUN 27 H D, Creatinine 1.00, Estimated Creat Clear 45, Estimated GFR 54 L, Est GFR ( Amer) 65, Glucose 138 H, Calcium 8.6 I & O for Labs for Last 24 Hours: Intake & Output 12/07/24 12/08/24 12/09/24 12/10/24 11:59 11:59 11:59 11:59 Intake Total 1040 / 1040 1813 / 1813 780 / 780 Output Total 0 / 0 0 / 0 0 / 0 Balance 1040 / 1040 1813 / 1813 780 / 780 Weight 132 lb 1.6 oz 128 lb 14.4 oz 131 lb 14.4 oz Microbiology Reports for the Last 24 Hours: Microbiology 12/08/24 00:10 Blood Blood Culture - Preliminary NO GROWTH AFTER 48 HOURS 12/07/24 18:49 Blood Blood Culture - Preliminary NO GROWTH AFTER 48 HOURS Constitutional: Present no acute distress Comment:: Sitting up in the bed completing her breakfast Respiratory: Present wheezes (Bilateral throughout posteriorly and anteriorly) Cardiac: Present Reg Rate and Rhythm GI: Present soft and normal bowel sounds; Absent distention or guarding Extremities: Present normal inspection; Absent tenderness, edema or calf tenderness Neuro: Present alert, awake and oriented x 3 Assessment and Plan *Assessment and plan (1) Influenza due to influenza virus, type A, human: Status: Acute Category: Medical Code(s): J10.1 - Influenza due to other identified influenza virus with other respiratory manifestations (2) Acute respiratory failure: Status: Acute Category: Medical Code(s): J96.00 - Acute respiratory failure, unspecified whether with hypoxia or hypercapnia (3) Asthma with status asthmaticus: Status: Acute Category: Medical Code(s): J45.902 - Unspecified asthma with status asthmaticus (4) Elevated serum lactate dehydrogenase: Status: Acute Category: Medical Code(s): R74.02 - Elevation of levels of lactic acid dehydrogenase [LDH] (5) Tachycardia: Status: Acute Category: Medical Code(s): R00.0 - Tachycardia, unspecified Plan Possibly steroid induced elevated white blood cells. Will recheck chest x-ray. Xopenex treatments scheduled. Otherwise continue current treatment. Dr. Manzanares entry - Saw patient, agree with above note.
--- NOTE | 2024-12-10 08:47 | XR_ITS ---
FINAL REPORT CLINICAL HISTORY: influenza, SOB COMPARISON: 12/07/2024 FINDINGS: Film was obtained in lordotic positioning. The heart size is normal. The mediastinum is normal. The lungs are underinflated. There is no focal infiltrate or edema. There are no pleural effusions. There is no pneumothorax. There is no osseous abnormality. IMPRESSION: No acute cardiopulmonary process Reviewed, Interpreted and Dictated by Ronnie Wagner MD Transcribed by Yuliya Fitch Authenticated and . [facility]
[2024-12-10] MEDS: guaiFENesin 600 MG TAB.ER.12H 1200 MG PO ×2 (08:51→20:18)
[2024-12-10] MEDS: ENOXAPARIN 40MG/0.4ML SYRINGE 40 MG SUBCUT (08:51)
[2024-12-10] MEDS: METOPROLOL TARTRATE 25MG TABLET 25 MG PO ×2 (08:51→20:18)
[2024-12-10] MEDS: OSELTAMIVIR PHOSPHATE 6MG/ML ORAL SUSP 60ML 30 MG PO ×2 (09:07→20:18)
[2024-12-10] MEDS: IPRATROPIUM/ALBUTEROL 3 ML NEB IH (09:09)
[2024-12-10 10:08] LABS: Lymphocytes % 5 % (10-50); Monocytes % 2 % (2-9); Neutrophils % 93 % (42-76); Platelet Estimate Normal; RBC Morphology Normal; Total Cells Counted 100
[2024-12-10] MEDS: LEVALBUTEROL 1.25MG/3ML NEB 1.25 MG IH ×3 (12:46→23:30)
--- NOTE | 2024-12-10 17:47 | PC.NURSE ---
Pt is sitting up in bed eating dinner. Appetite better. Pt is A&O x4. She has remained on RA this shift. Lungs noted to have audible wheezing. Medicated per jan. No complaints stated. Call light within reach. Visitor at bedside.
[2024-12-10] MEDS: PANTOPRAZOLE 40MG TABLET 40 MG PO (20:18)
[2024-12-11] VITALS (10 sets, daily range): BP systolic 137–166; BP diastolic 63–83; PULSE 62–99; RESP 16–18; TEMP 36.4–37.4; O2SAT 92–96; BMI 26.2
[2024-12-11] MEDS: METHYLPREDNISOLONE SOD SUCC 125MG VIAL 80 MG IV ×3 (00:26→16:21)
[2024-12-11] MEDS: IPRATROPIUM/ALBUTEROL 3 ML NEB IH (04:42)
--- NOTE | 2024-12-11 05:07 | PC.NURSE ---
Alert and oriented. No complaints throughout the night. Patient did get up to bathroom with requested a breathing treatment. Patient remained on room air, lung sounds wheezing. Independent in the room. Call light in reach.
[2024-12-11] MEDS: LEVALBUTEROL 1.25MG/3ML NEB 1.25 MG IH ×3 (06:03→18:11)
[2024-12-11 06:47] LABS: Basophils % 0.1 % (0.1-2.0); Hematocrit 35.2 % (37.0-47.0); Hemoglobin 11.4 g/dL (12.2-16.2); Lymphocytes # 0.6 K/mm3 (0.7-4.5); Lymphocytes % 5.9 % (10-50); Mean Corpuscular HGB Conc 32.4 g/dL (31.8-35.4); Mean Corpuscular Hemoglobin 30.4 pg (27.0-31.2); Mean Corpuscular Volume 93.9 fl (81-99); Mean Platelet Volume 10.5 fl (7.4-10.4); Monocytes # 0.3 K/mm3 (0.1-1.0); Monocytes % 3.1 % (1.7-9.3); Neutrophils # 9.8 K/mm3 (1.8-7.8); Platelet Count 269 K/mm3 (142-424); Red Blood Count 3.75 M/mm3 (4.20-5.40); White Blood Count 10.9 K/mm3 (4.8-10.8)
[2024-12-11 06:59] LABS: MANUAL DIFFERENTIAL MANUAL DIFFERENTIAL (MANUAL DIFF)
[2024-12-11 07:27] LABS: Chloride 105 mmol/L (98-107); Sodium 137 mmol/L (136-145)
[2024-12-11 07:30] LABS: Blood Urea Nitrogen 26 mg/dl (7-17); Calcium 8.4 mg/dl (8.4-10.2); Carbon Dioxide 24 mmol/L (22.0-30.0); Creatinine Clearance Estimated 45 mL/min (50-200); Estimated Glomerular Filt Rate 54 ml/min (>60); GFR (African American) 65 ML/MIN (>60); Glucose 128 mg/dl (74-100)
[2024-12-11] MEDS: ENOXAPARIN 40MG/0.4ML SYRINGE 40 MG SUBCUT (07:54)
[2024-12-11] MEDS: guaiFENesin 600 MG TAB.ER.12H 1200 MG PO ×2 (07:55→20:48)
[2024-12-11] MEDS: METOPROLOL TARTRATE 25MG TABLET 25 MG PO ×2 (07:56→20:48)
[2024-12-11] MEDS: OSELTAMIVIR PHOSPHATE 6MG/ML ORAL SUSP 60ML 30 MG PO ×2 (08:26→20:48)
--- NOTE | 2024-12-11 08:29 | P.PN_ITS ---
Subjective *Date: 12/11/24 *Time: 08:52 Interval history: Patient had a better day yesterday. She had a couple of episodes with increased wheezing requiring additional neb treatments. This usually happens with minimal activity. She has been able to eat better. She is voiding QS. She denies chest pain. Patient white blood cell count has decreased to 10,900 today with a hemoglobin of 11.4 hematocrit 35.2. Electrolytes remain normal today with good renal function. Repeat chest x-ray showed no acute cardiopulmonary process. Medical Exam Vital signs and Labs for Last 24 Hours: Vital Signs Temp Pulse Pulse Resp BP Pulse Ox O2 Del Method 12/11/24 08:11 Room Air 12/11/24 08:00 Room Air 12/11/24 06:51 Room Air 12/11/24 06:03 73 12/11/24 06:03 75 12/11/24 05:00 Room Air 12/11/24 04:42 62 12/11/24 04:42 72 12/11/24 04:00 97.5 F L 93 H 16 153/80 H 95 Room Air 12/11/24 03:00 Room Air 12/11/24 00:54 Room Air 12/11/24 00:00 98.8 F 80 16 149/77 H 94 L Room Air 12/10/24 23:30 78 12/10/24 23:30 80 12/10/24 23:00 Room Air 12/10/24 20:48 Room Air 12/10/24 20:00 97.3 F L 103 H 16 158/74 H 94 L Room Air 12/10/24 20:00 Room Air 12/10/24 19:00 Room Air 12/10/24 18:05 94 H 12/10/24 18:05 91 H 12/10/24 17:00 Room Air 12/10/24 16:00 98.1 F 99 H 17 140/79 94 L 12/10/24 15:00 Room Air 12/10/24 13:00 Room Air 12/10/24 12:46 84 12/10/24 12:46 82 12/10/24 11:21 97.8 F 75 18 145/77 H 95 Room Air 12/10/24 11:00 Room Air 12/10/24 09:11 90 12/10/24 09:11 86 12/10/24 09:00 Room Air Intake and Output 12/10/24 12/11/24 12/11/24 19:59 03:59 11:59 Intake Total 360 / 360 300 / 660 Output Total 0 / 0 0 / 0 Balance 360 / 360 300 / 660 0 / 660 Intake: Intake, Oral Amount 360 / 360 300 / 660 Output: Output, Urine Amount 0 / 0 0 / 0 Other: Number of Unmeasured Voids 2 1 Number of Bowel Movements 1 Weight 130 lb Patient Weight 12/11/24 11:59 Weight 130 lb Laboratory Results - last 24 hr 12/10/24 06:00: Total Counted 100, Neutrophils % (Manual) 93 H, Lymphocytes % (Manual) 5 L, Monocytes % (Manual) 2, Platelet Estimate Normal, RBC Morphology Normal 12/11/24 05:36: WBC 10.9 H D, RBC 3.75 L, Hgb 11.4 L, Hct 35.2 L, MCV 93.9, MCH 30.4, MCHC 32.4, RDW 14.0, Plt Count 269, MPV 10.5 H, Neut % (Auto) 90.0 H, Lymph % (Auto) 5.9 L, [place] % (Auto) 3.1, Eos % (Auto) 0.0 L, Baso % (Auto) 0.1, Neut # (Auto) 9.8 H, Lymph # (Auto) 0.6 L, [place] # (Auto) 0.3, Eos # (Auto) 0.0, Baso # (Auto) 0.0, Sodium 137, Potassium 4.0, Chloride 105, Carbon Dioxide 24, Anion Gap 12.0, BUN 26 H, Creatinine 1.00, Estimated Creat Clear 45, Estimated GFR 54 L, Est GFR ( Amer) 65, Glucose 128 H, Calcium 8.4 I & O for Labs for Last 24 Hours: Intake & Output 12/08/24 12/09/24 12/10/24 12/11/24 11:59 11:59 11:59 11:59 Intake Total 1040 / 1040 1813 / 1813 1140 / 1140 660 / 660 Output Total 0 / 0 0 / 0 0 / 0 0 / 0 Balance 1040 / 1040 1813 / 1813 1140 / 1140 660 / 660 Weight 132 lb 1.6 oz 128 lb 14.4 oz 131 lb 13.383 oz 130 lb Constitutional: Present no acute distress Comment:: Sitting up in the bed and appears comfortable. Respiratory: Present wheezes (Scattered throughout bilaterally. This does seem to be less today.) Cardiac: Present Reg Rate and Rhythm GI: Present soft and normal bowel sounds; Absent distention, tenderness or guarding Extremities: Present normal inspection; Absent tenderness, edema or calf tendern ess Neuro: Present alert, awake and oriented x 3 Assessment and Plan *Assessment and plan (1) Influenza due to influenza virus, type A, human: Status: Acute Category: Medical Code(s): J10.1 - Influenza due to other identified influenza virus with other respiratory manifestations (2) Acute respiratory failure: Status: Acute Category: Medical Code(s): J96.00 - Acute respiratory failure, unspecified whether with hypoxia or hypercapnia (3) Asthma with status asthmaticus: Status: Acute Category: Medical Code(s): J45.902 - Unspecified asthma with status asthmaticus (4) Elevated serum lactate dehydrogenase: Status: Acute Category: Medical Code(s): R74.02 - Elevation of levels of lactic acid dehydrogenase [LDH] (5) Tachycardia: Status: Acute Category: Medical Code(s): R00.0 - Tachycardia, unspecified Plan Continue with current care and add budesonide nebs Dr. Manzanares entry - Saw patient, agree with above note. She is slightly better today. WBC count is lower, continue Tamiflu.
[2024-12-11 08:51] LABS: Eosinophils % 2 % (0-3); Lymphocytes % 10 % (10-50); Monocytes % 2 % (2-9); Neutrophils % 86 % (42-76); Platelet Estimate Normal; RBC Morphology Normal; Total Cells Counted 100
--- NOTE | 2024-12-11 14:44 | PC.NURSE ---
Aox 4, up ad lisa, 20g R AC SL, regular diet, on lovenox, lung sounds with exp wheezing noted.
[2024-12-11] MEDS: BUDESONIDE 0.25MG/2ML NEB 0.25 MG IH (18:11)
[2024-12-11] MEDS: PANTOPRAZOLE 40MG TABLET 40 MG PO (20:48)
[2024-12-12] VITALS: BP 170/69; PULSE 66; PULSE 82; PULSE 86; RESP 18; TEMP 37.4; O2SAT 95; O2SAT 96
[2024-12-12] MEDS: METHYLPREDNISOLONE SOD SUCC 125MG VIAL 80 MG IV ×2 (00:09→07:47)
[2024-12-12 04:00] VITALS: BP 131/77; PULSE 93; RESP 16; TEMP 37.1; O2SAT 93; BMI 27.0
--- NOTE | 2024-12-12 05:01 | PC.NURSE ---
Alert and oriented. No complaints this shift. Scheduled breathing treatments and steroids. Independent in the room. Lung sounds ex. wheezing throughout, left worse than right. Call light in reach.
[2024-12-12] MEDS: ACETAMINOPHEN 325MG TAB 650 MG PO (05:14)
[2024-12-12] MEDS: LEVALBUTEROL 1.25MG/3ML NEB 1.25 MG IH ×2 (06:01)
[2024-12-12 06:02] VITALS: PULSE 86; PULSE 90; O2SAT 95
[2024-12-12] MEDS: BUDESONIDE 0.25MG/2ML NEB 0.25 MG IH (06:02)
[2024-12-12] MEDS: guaiFENesin 600 MG TAB.ER.12H 1200 MG PO (07:47)
[2024-12-12] MEDS: METOPROLOL TARTRATE 25MG TABLET 25 MG PO (07:47)
[2024-12-12] MEDS: ENOXAPARIN 40MG/0.4ML SYRINGE 40 MG SUBCUT (07:47)
[2024-12-12] MEDS: OSELTAMIVIR PHOSPHATE 6MG/ML ORAL SUSP 60ML 30 MG PO (07:48)
[2024-12-12 08:00] VITALS: BP 152/73; PULSE 98; RESP 16; TEMP 36.6; O2SAT 97
--- NOTE | 2024-12-12 08:39 | P.PN_ITS ---
Subjective *Date: 12/12/24 *Time: 08:54 Interval history: Patient is feeling a little better today. She still has a cough but has not required any oxygen. She was running a low grade fever this am. She has some pain in her back. She had tylenol around 4am but it did not help. She did rest and ate well this am. Medical Exam Vital signs and Labs for Last 24 Hours: Vital Signs Temp Pulse Pulse Resp BP Pulse Ox O2 Del Method 12/12/24 07:42 Room Air 12/12/24 07:00 Room Air 12/12/24 06:02 86 12/12/24 06:02 90 12/12/24 06:02 95 Room Air 12/12/24 05:00 Room Air 12/12/24 04:00 98.8 F 93 H 16 131/77 93 L Room Air 12/12/24 03:00 Room Air 12/12/24 00:59 Room Air 12/12/24 00:00 99.4 F 66 18 170/69 H 96 Room Air 12/12/24 00:00 82 12/12/24 00:00 86 12/12/24 00:00 95 Room Air 12/11/24 22:51 Room Air 12/11/24 21:00 Room Air 12/11/24 20:00 Room Air 12/11/24 20:00 99.4 F 74 16 153/75 H 96 Room Air 12/11/24 18:12 86 12/11/24 18:12 89 12/11/24 18:12 96 Room Air 12/11/24 17:43 Room Air 12/11/24 16:27 Room Air 12/11/24 16:00 98 F 87 16 137/68 92 L 12/11/24 14:41 Room Air 12/11/24 12:24 Room Air 12/11/24 12:00 97.6 F 89 16 156/63 H 93 L Room Air 12/11/24 11:30 79 12/11/24 11:30 79 12/11/24 10:18 Room Air Intake and Output 12/11/24 12/12/24 12/12/24 19:59 03:59 11:59 Intake Total 840 / 1440 600 / 1440 Output Total 0 / 0 0 / 0 Balance 840 / 1440 600 / 1440 0 / 1440 Intake: Intake, Oral Amount 840 / 1440 600 / 1440 Output: Output, Urine Amount 0 / 0 0 / 0 Other: Number of Unmeasured Voids 1 1 Weight 134 lb 1.6 oz Patient Weight 12/12/24 11:59 Weight 134 lb 1.6 oz Laboratory Results - last 24 hr 12/11/24 05:36: Total Counted 100, Neutrophils % (Manual) 86 H, Lymphocytes % (Manual) 10, Monocytes % (Manual) 2, Eosinophils % (Manual) 2, Platelet Estimate Normal, RBC Morphology Normal I & O for Labs for Last 24 Hours: Intake & Output 12/09/24 12/10/24 12/11/24 12/12/24 11:59 11:59 11:59 11:59 Intake Total 1813 / 1813 1140 / 1140 1140 / 1140 1440 / 1440 Output Total 0 / 0 0 / 0 0 / 0 0 / 0 Balance 1813 / 1813 1140 / 1140 1140 / 1140 1440 / 1440 Weight 128 lb 14.4 oz 131 lb 13.383 oz 130 lb 134 lb 1.6 oz Microbiology Reports for the Last 24 Hours: Microbiology 12/08/24 00:10 Blood Blood Culture - Preliminary NO GROWTH AFTER 4 DAYS 12/07/24 18:49 Blood Blood Culture - Preliminary NO GROWTH AFTER 4 DAYS Constitutional: Present no acute distress Comment:: Sitting up in the chair and appears comfortable. Respiratory: Present wheezes (Scattered throughout bilaterally. This does seem to be less today.) Cardiac: Present Reg Rate and Rhythm GI: Present soft and normal bowel sounds; Absent distention, tenderness or guarding Extremities: Present normal inspection; Absent tenderness, edema or calf tenderness Neuro: Present alert, awake and oriented x 3 Assessment and Plan *Assessment and plan (1) Influenza due to influenza virus, type A, human: Status: Acute Category: Medical Code(s): J10.1 - Influenza due to other identified influenza virus with other respiratory manifestations (2) Acute respiratory failure: Status: Acute Category: Medical Code(s): J96.00 - Acute respiratory failure, unspecified whether with hypoxia or hypercapnia (3) Asthma with status asthmaticus: Status: Acute Category: Medical Code(s): J45.902 - Unspecified asthma with status asthmaticus (4) Elevated serum lactate dehydrogenase: Status: Acute Category: Medical Code(s): R74.02 - Elevation of levels of lactic acid dehydrogenase [LDH] (5) Tachycardia: Status: Acute Category: Medical Code(s): R00.0 - Tachycardia, unspecified Plan Will give some motrin today for fever and back pain. She would also like some G as-X. She continues to improve. Dr. Manzanares entry - Saw patient, agree with above note. OK to discharge home today with oral Dexamethasone and Zithromax, office f/u next week.
[2024-12-12] MEDS: SIMETHICONE 80MG CHEWABLE TABLET 160 MG PO (09:00)
--- NOTE | 2024-12-13 10:57 | SW/DCPLANNER ---
Spoke with patient on the phone. Patient stated that she is doing well. Patient stated that she is aware of her upcoming appointment. 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 Patient stated that she has no concerns or questions at this time. Shayne Anderson
--- NOTE | 2024-12-16 22:50 | P.DS_ITS ---
General Admission date:: 12/10/24 Discharge date: 12/12/24 HPI HPI HPI: Mrs. Schaeffer is a 74 year old female patient of [facility], with a history of asthma. She presented to [facility] ER last night complaining of difficulty breathing. She states she started noticing some shortness of breath with exertion a few weeks ago but felt well enough to go to [place] for vacation last week. A little over a day ago she states her breathing troubles got worse and she began to cough up clear sputum. She flew back yesterday and states she almost passed out when deboarding the plane due to shortness of breath. She had some subjective fever and body aches yesterday, unknown sick contacts. She states she had been taking all of her medications as prescribed. Hospital Course Hospital Course Hospital Course: Patient was admitted for acute respiratory failure due to asthma and flu. She was started on oxygen, steroids, Tamiflu, and a low-dose of metoprolol. She continued with exertional shortness of breath. Xopenex treatments were scheduled. A chest x-ray was ordered. It showed no acute cardiopulmonary process. Budesonide nebs were added. By 12/12/2024, she was feeling better. She still had a cough but had not required any oxygen throughout the night. She was complaining of some pain in her back. Her blood cultures showed no growth. She was given Motrin for her back pain and it was felt she was stable to discharge home with oral dexamethasone and Zithromax. She will follow-up with Dr. Soraida green in the office Exam Data for Last 24 hours Vital signs and Labs for Last 24 Hours: Temp Pulse Resp BP Pulse Ox O2 Del Method O2 Flow Rate 97.9 F 98 H 16 152/73 H 97 Room Air 2 12/12/24 08:00 12/12/24 08:00 12/12/24 08:00 12/12/24 08:00 12/12/24 08:00 12/12/24 09:00 12/09/24 06:39 Narrative: Constitutional Constitutional: no acute distress *Routine HEENT Exam Head: Present normocephalic Eye: Present EOMI and PERRL ENT: Present mucous membranes moist *Routine Neck Exam Neck: Present supple; Absent lymphadenopathy *Routine Respiratory Exam Respiratory: Present rhonchi, wheezes and diminished air movement *Routine Cardiovascular Exam Cardiovascular: Present RRR and tachycardia *Routine Abdominal Exam Abdominal: Present soft and normoactive bowel sounds; Absent tenderness *Routine Rectal Exam Rectal:: deferred *Routine Genitalia Exam Genitalia:: deferred *Routine Extremities Exam Extremities: Absent cyanosis, clubbing or edema *Routine Skin Exam Skin: Present warm; Absent rash *Routine Neurological Exam Neurological: Present alert and oriented X3 DS: Diagnosis Discharge Diagnosis (1) Influenza due to influenza virus, type A, human: Status: Acute Code(s): J10.1 - Influenza due to other identified influenza virus with other respiratory manifestations (2) Acute respiratory failure: Status: Acute Code(s): J96.00 - Acute respiratory failure, unspecified whether with hypoxia or hypercapnia (3) Asthma with status asthmaticus: Status: Acute Code(s): J45.902 - Unspecified asthma with status asthmaticus (4) Elevated serum lactate dehydrogenase: Status: Acute Code(s): R74.02 - Elevation of levels of lactic acid dehydrogenase [LDH] (5) Tachycardia: Status: Acute Code(s): R00.0 - Tachycardia, unspecified Meds Home Medications and Allergies Home Medications ?Medication ?Instructions ?Recorded ?Confirmed ?Type albuterol sulfate 90 mcg/actuation 90 mcg inhalation Q4HP PRN 12/08/24 12/08/24 History aerosol inhaler Shortness Of Breath budesonide 160 mcg-glycopyr 9 2 inh inhalation BIDRT 12/08/24 12/08/24 History mcg-formot 4.8 mcg/actuation HFA inhaler (Breztri Aerosphere) cyclobenzaprine 5 mg tablet 5 mg PO DAILYP PRN Muscle Spasm 12/08/24 12/08/24 History omeprazole 40 mg capsule,delayed 40 mg PO DAILYP PRN Acid Reflux 12/08/24 12/08/24 History release azithromycin 500 mg tablet 500 mg PO DAILY 3 days #3 tabs 12/12/24 Rx (Zithromax TRI-NATTY) dexamethasone 2 mg tablet 2 mg PO BID #20 tabs 12/12/24 Rx New Prescriptions to Start Prescriptions: azithromycin [Zithromax TRI-NATTY] Virgin,Sadi dexamethasone Virgin,Sadi Allergies Allergy/AdvReac Type Severity Reaction Status Date / Time prednisone (PREDNISONE) AdvReac Intermediate HALLUCINATI Verified 12/07/24 19:00 ONS Discharge Plan Disposition Patient Disposition: Home, Self-Care Condition: Fair Discharge Order Discharge Orders: Discharge Order (Routine); Ordered 12/12/24 Ordered By: Sadi Manzanares Follow up Plan Follow up with: Sadi Manzanares MD [Primary Care Provider] - 12/18/24 9:45 am Prescriptions/Medication Reconciliation: New dexamethasone 2 mg tablet 2 mg PO BID Qty: 20 0RF azithromycin [Zithromax TRI-NATTY] 500 mg tablet 500 mg PO DAILY 3 Days Qty: 3 0RF Continued albuterol sulfate 90 mcg/actuation HFA aerosol inhaler 90 mcg INHALATION Q4HP PRN (Reason: Shortness Of Breath) cyclobenzaprine 5 mg tablet 5 mg PO DAILYP PRN (Reason: Muscle Spasm) Patient Comments: TAKE ONE TABLET BY MOUTH AT BEDTIME NEEDED omeprazole 40 mg capsule,delayed release(DR/EC) 40 mg PO DAILYP PRN (Reason: Acid Reflux) Patient Comments: CALLED CLINIC PHARMACY, STATED PATIENT HAS NOT FILLED THIS MEDICATION SINCE FEBRUARY OF 2024. PER NANCY WILKES RN, PATIENT STATED SHE ONLY TAKES THIS MEDICATION NEEDED DAILY. [email or web address] 160-9-4.8 mcg/actuation Hfa Aerosol Inhaler 2 inh INHALATION BIDRT Rx Instructions: CALLED CLINIC PHARMACY, STATED PATIENT HAS NOT FILLED THIS MEDICATION. PER NANCY WILKES RN, PATIENT STATED SHE DOES TAKE THIS MEDICATION DAILY. Problem Reconciliation Problems Reviewed?: Yes Patient Discharge Instructions ACTIVITY: Limited activity DIET: continue same diet Patient Instructions: DI for Influenza -- Adult, DI for Respiratory Failure Print Language: Bengali Providers Primary Care Provider: Sadi Manzanares Admit Provider: Zoë Jara Attending Provider: Sadi Manzanares
== END 2024-12-12 09:33 | disposition home or self-care (01) | DRG 189 ==
LOC: ER 20:59 → 2ND 22:39
PROVIDERS: Admitting Provider Family Medicine; Emergency Provider Emergency Medicine; PCP Family Medicine; Visit Provider Family Medicine
DX: J96.00 Acute respiratory failure, unspecified whether with hypoxia or hypercapnia (principal); J45.902 Unspecified asthma with status asthmaticus; J10.1 Influenza due to other identified influenza virus with other respiratory manifestations; R74.02 Elevation of levels of lactic acid dehydrogenase [LDH]; R00.0 Tachycardia, unspecified; Z79.51 Long term (current) use of inhaled steroids; Z79.899 Other long term (current) drug therapy
CPT/HCPCS: 36415; 71045; 71275; 80048; 80053; 82803; 83605; 83735; 83880; 84484; 85007; 85025; 85378; 86803; 87040; 87389; 87636; 93005; 94640; 99291; G0378; J1650; J2919; J3475; J7120; J7614; J7620; Q9967

== ENCOUNTER 2025-01-11 12:05 | Outpatient (CLI) | payer MEDICARE, OTHER, SELFPAY ==
[2025-01-18 10:12] LABS: D001-IgE D pteronyssinus <0.10 kU/L (Class 0); D002-IgE D farinae <0.10 kU/L (Class 0); E001-IgE Cat Dander <0.10 kU/L (Class 0); E005-IgE Dog Dander <0.10 kU/L (Class 0); E072-IgE Mouse Urine <0.10 kU/L (Class 0); G002-IgE Bermuda Grass <0.10 kU/L (Class 0); G006-IgE Timothy Grass <0.10 kU/L (Class 0); I006-IgE Cockroach, German <0.10 kU/L (Class 0); Immunoglobulin E, Total 90 IU/mL (6-495); M001-IgE Penicillium chrysogen <0.10 kU/L (Class 0); M002-IgE Cladosporium herbarum <0.10 kU/L (Class 0); M003-IgE Aspergillus fumigatus <0.10 kU/L (Class 0); M006-IgE Alternaria alternata <0.10 kU/L (Class 0); T001-IgE Maple/Box Elder <0.10 kU/L (Class 0); T003-IgE Common Silver Birch <0.10 kU/L (Class 0); T006-IgE Cedar, Mountain <0.10 kU/L (Class 0); T007-IgE Oak, White <0.10 kU/L (Class 0); T008-IgE Elm, American <0.10 kU/L (Class 0); T010-IgE Walnut <0.10 kU/L (Class 0); T011-IgE Maple Leaf Sycamore <0.10 kU/L (Class 0); T014-IgE Cottonwood <0.10 kU/L (Class 0); T015-IgE Ash, White <0.10 kU/L (Class 0); T022-IgE Pecan, Hickory <0.10 kU/L (Class 0); T070-IgE White Mulberry <0.10 kU/L (Class 0); W001-IgE Ragweed, Short <0.10 kU/L (Class 0); W011-IgE Thistle, Russian <0.10 kU/L (Class 0); W014-IgE Pigweed, Common <0.10 kU/L (Class 0); W018-IgE Sheep Sorrel <0.10 kU/L (Class 0)
== END 2025-01-11 23:59 | disposition home or self-care (01) ==
LOC: LAB 12:06
PROVIDERS: PCP Family Medicine; Visit Provider Internal Medicine Pulmonary Disease
DX: J30.9 Allergic rhinitis, unspecified (principal)
CPT/HCPCS: 36415; 82785; 86003

== ENCOUNTER 2025-02-07 06:01 | Day surgery (SDC) | payer MEDICARE, OTHER, SELFPAY ==
[2025-02-04 16:28] VITALS: BMI 26.2
[2025-02-07 06:45] VITALS: BP 120/63; PULSE 89; RESP 16; TEMP 36.3; O2SAT 97
[2025-02-07] MEDS: LACTATED RINGERS 1000ML 1,000 ML 50 ML IV (06:58)
--- NOTE | 2025-02-07 07:23 | P.PNANES_ITS ---
[facility] Disclaimer: The information contained in this section may have been updated after the patient was seen, as this information can be updated by other users. Medical History Dyspnea on exertion Esophageal dilatation Left sided sciatica Lumbar facet arthropathy Lumbar disc disease HTN (hypertension) Vitamin D deficiency Vitamin B12 deficiency Esophageal stricture Osteopenia Arthritis of left knee Macular degeneration History of gastroesophageal reflux (GERD) Asthma Tympanosclerosis Tinnitus of left ear Hearing loss of both ears Surgical History H/O esophagogastroduodenoscopy H/O tubal ligation History of knee replacement History of tonsillectomy H/O: hysterectomy Family History Other Cancer Coronary artery disease Social History Smoking Status: Never smoker alcohol intake: never substance use type: denies use current occupational status: retired Travel in the last 8 weeks: None household members: spouse housing: house current occupational exposures/hazards: No caffeine: No Have you lived/traveled outside [place] in past 30 days?: No Contact w/someone who lives/traveled outside US past 30 days?: No Exposure to someone with infectious disease in past 14 days?: No Do you have a fever (greater than 100.4 F or 38 C)?: No Have you tested positive for COVID-19: No Exposed to someone with COVID-19 in past 14 days?: No Do you have a sore throat?: No Do you have a cough?: No Do you have any weakness?: No Are you experiencing any nausea/vomitting?: No Do you have any diarrhea?: No Are you experiencing any unusual bleeding?: No Do you have any muscle aches/pain?: No Do you have any abdominal pain?: No Are you experiencing loss of taste or smell?: No [facility] Anesthesia Checklist Patient Identification Patient Identification: Arm Band and Verbal (Name & ) Structural Data Admitted From: Home Planned Operative Procedure/s: EGD Consent for Planned Operative Procedure(s) Verified: Yes Verified Documents: Surgical Consent and History and Physical NPO Status Verified Time NPO: 00:00 Additional verifications Anesthesia Reactions: No Airway Assessment Mallampati Score:: Class II Neurological Assessment Level of Consciousness: Awake, Alert and Appropriate Hx Seizures: No Numbness or tingling in extremities: No Anesthesia Plan Anesthesia Risk discussed: Yes Anesthesia Plan: Verified ASA Class: II Anesthesia Type: MAC
--- NOTE | 2025-02-07 07:34 | P.HP_ITS ---
History of Present Illness *Admission Date: 02/07/25 *Reason for visit:: Dysphagia *History of present illness: Mrs. Schaeffer is a 74-year-old female with a long history of recurrent dysphagia secondary to Schatzki's ring. This has been repeatedly dilated and her last dilation was in December 2021. At that time she had some cricopharyngeal spasm and a Schatzki's ring with initial diameter of 8 to 9 mm dilated up to 20 mm. She did have a very small 1 to 2 cm hiatal hernia. She does have a long history of heartburn and reflux for which she takes omeprazole. Her EGD did show nonerosive GERD without Sheets's or reflux esophagitis and she also had some mild gastric atrophy. The patient does report regular bowel function but does take MiraLAX some. She does get some gassiness and belching. She was recently in the hospital with asthma exacerbation and dyspnea. [facility] Disclaimer: The information contained in this section may have been updated after the patient was seen, as this information can be updated by other users. Medical History Dyspnea on exertion Esophageal dilatation Left sided sciatica Lumbar facet arthropathy Lumbar disc disease HTN (hypertension) Vitamin D deficiency Vitamin B12 deficiency Esophageal stricture Osteopenia Arthritis of left knee Macular degeneration History of gastroesophageal reflux (GERD) Asthma Tympanosclerosis Tinnitus of left ear Hearing loss of both ears Surgical History H/O esophagogastroduodenoscopy H/O tubal ligation History of knee replacement History of tonsillectomy H/O: hysterectomy Family History Other Cancer Coronary artery disease Social History Smoking Status: Never smoker alcohol intake: never substance use type: denies use current occupational status: retired Travel in the last 8 weeks: None household members: spouse housing: house current occupational exposures/hazards: No caffeine: No Have you lived/traveled outside US in past 30 days?: No Contact w/someone who lives/traveled outside US past 30 days?: No Exposure to someone with infectious disease in past 14 days?: No Do you have a fever (greater than 100.4 F or 38 C)?: No Have you tested positive for COVID-19: No Exposed to someone with COVID-19 in past 14 days?: No Do you have a sore throat?: No Do you have a cough?: No Do you have any weakness?: No Are you experiencing any nausea/vomitting?: No Do you have any diarrhea?: No Are you experiencing any unusual bleeding?: No Do you have any muscle aches/pain?: No Do you have any abdominal pain?: No Are you experiencing loss of taste or smell?: No Other Medical History Have you received the Flu Vaccine for this season: No Have you received the Pneumonia Vaccine: Yes Review of Systems Review of Systems Review of systems (narrative): Negative *Cardiovascular Comments: Negative *Gastrointestinal Comments: Negative *Genitourinary Comments: Negative *Musculoskeletal Comments: Negative *Neurologic Comments: Negative Meds Home Medications and Allergies Home Medications ?Medication ?Instructions ?Recorded ?Confirmed ?Type albuterol sulfate 90 mcg/actuation 90 mcg inhalation Q4HP PRN 12/08/24 02/07/25 History aerosol inhaler Shortness Of Breath cyclobenzaprine 5 mg tablet 5 mg PO DAILYP PRN Muscle Spasm 12/08/24 02/07/25 History omeprazole 40 mg capsule,delayed 40 mg PO DAILYP PRN Acid Reflux 12/08/24 02/07/25 History release cholecalciferol (vitamin D3) 125 125 mcg PO DAILY 12/18/24 02/07/25 History mcg (5,000 unit) tablet gabapentin 300 mg capsule 300 mg PO NEEDED 12/18/24 02/07/25 History vitamins A,C,Y-rrwn-jiseou 2,148 2 tab PO DAILY 12/18/24 02/07/25 History mcg-113 mg-45 mg-17.4 mg tablet (PreserVision AREDS) albuterol sulfate 90 mcg/actuation 2 inh inhalation Q6H PRN shortness 01/11/25 02/07/25 Rx aerosol inhaler of breath or wheezing 90 days #8.5 grams budesonide 0.5 mg/2 mL suspension 0.5 mg (2 mL) inhalation BID 90 01/11/25 02/07/25 Rx for nebulization (Pulmicort) days #360 mL ipratropium 0.5 mg-albuterol 3 mg 3 ml inhalation Q6H PRN shortness 01/11/25 02/07/25 Rx (2.5 mg base)/3 mL nebulization of breath or wheezing #90 mL soln ipratropium 0.5 mg-albuterol 3 mg 3 ml inhalation Q8H 3 months #810 01/14/25 02/07/25 Rx (2.5 mg base)/3 mL nebulization mL soln New Prescriptions to Start Prescriptions: Allergies Allergy/AdvReac Type Severity Reaction Status Date / Time prednisone (PREDNISONE) AdvReac Intermediate HALLUCINATI Verified 02/07/25 06:41 ONS Exam Data for Last 24 hours Vital signs and Labs for Last 24 Hours: Temp Pulse Resp BP Pulse Ox O2 Del Method 97.3 F L 89 16 120/63 97 Room Air 02/07/25 06:45 02/07/25 06:45 02/07/25 06:45 02/07/25 06:45 02/07/25 06:45 02/07/25 06:45 I & O for Last 24 hours: Intake & Output 02/04/25 02/05/25 02/06/25 02/07/25 23:59 23:59 23:59 23:59 Weight 130 lb *Routine HEENT Exam Head: Present normocephalic Eye: Present EOMI and PERRL ENT: Present mucous membranes moist *Routine Neck Exam Neck: Present supple *Routine Respiratory Exam Respiratory: Present CTA bilaterally *Routine Cardiovascular Exam Cardiovascular: Present RRR *Routine Abdominal Exam Abdominal: Present soft and normoactive bowel sounds; Absent tenderness *Routine Rectal Exam Rectal:: deferred *Routine Genitalia Exam Genitalia:: deferred *Routine Extremities Exam Extremities: Absent cyanosis, clubbing or edema *Routine Skin Exam Skin: Present warm; Absent rash *Routine Neurological Exam Neurological: Present alert and oriented X3 Assessment and Plan *Assessment and plan (1) Dysphagia: Status: Acute Category: Medical Code(s): R13.10 - Dysphagia, unspecified (2) Schatzki's ring: Status: Acute Category: Medical Code(s): K22.2 - Esophageal obstruction (3) History of esophageal stricture: Status: Acute Category: Medical Code(s): Z87.19 - Personal history of other diseases of the digestive system (4) GERD (gastroesophageal reflux disease): Status: Acute Category: Medical Code(s): K21.9 - Gastro-esophageal reflux disease without esophagitis Plan A/P: 1. Dysphagia with history of Schatzki's ring/esophageal stricture is the preprocedural diagnosis. The patient will be anesthetized/sedated using MAC sedation. The patient has been seen and examined. Cardiac and lung assessment prior to the examination is stable. Proceed with planned diagnostic/therapeutic upper endoscopy
--- NOTE | 2025-02-07 07:36 | HMH.PROCNOTE ---
[facility] Procedure Note Date: 02/07/25 Time: 07:51 Procedure Note:: Upper Endoscopy Procedure Report: Esophagogastroduodenoscopy with cold biopsies and TTS balloon dilation Endoscopost: Alexander Vasquez II, MD Referring Physician: February 07, 2025 Date of Procedure: Sadi Manzanares MD Equipment: Olympus GIF 190 standard upper endoscope Sedation: MAC sedation Indications: Mrs. Schaeffer is a 74-year-old female with a long history of recurrent dysphagia secondary to Schatzki's ring who is here for diagnostic/therapeutic upper endoscopy. This has been repeatedly dilated and her last dilation was in December 2021. At that time she had some cricopharyngeal spasm and a Schatzki's ring with initial diameter of 8 to 9 mm dilated up to 20 mm. She did have a very small 1 to 2 cm hiatal hernia. She does have a long history of heartburn and reflux for which she takes omeprazole. Her EGD did show nonerosive GERD without Sheets's or reflux esophagitis and she also had some mild gastric atrophy. The patient does report regular bowel function but does take MiraLAX some. She does get some gassiness and belching. She was recently in the hospital with asthma exacerbation and dyspnea. Procedure: Prior to the procedure, a history and physical exam was performed, and patient's medications and allergies were reviewed. The risks, benefits and alternatives of the sedation and procedure were discussed with the patient. All questions were answered and informed consent was obtained. The patient was brought to the procedure room. Patient identification and proposed procedure were verified by the physician and the nurse. The patient was placed in a left lateral decubitus position and the scope was passed under direct vision. Throughout the procedure, the patient's blood pressure, pulse, and oxygen saturations were monitored continuously. The upper GI endoscopy was accomplished without difficulty. The patient tolerated the procedure well. Findings: The scope was passed directly into the upper esophagus and advanced to the third portion of the duodenum. The post bulbar duodenum and duodenal bulb were normal with normal mucosa and conniventes. The scope was withdrawn through a normal duodenal bulb and pylorus into the stomach. There was bile reflux with mild linear reactive gastropathy of the antrum. The body and fundus of the stomach were grossly normal. Upon retroflexion there was a very small sliding 1 to 2 cm hiatal hernia cold biopsies were taken from the antrum. The scope was then withdrawn into the esophagus. There was a distal esophageal Schatzki's ring that was originally 8 mm in diameter and shattered briefly with the endoscope (9 mm). There was no evidence of reflux esophagitis or Sheets's. Biopsies were taken from the GE junction. There were tertiary contractions and mild esophageal dysmotility. The Schatzki's ring was dilated to 20 mm with a TTS hydrostatic balloon. The entire esophagus was dilated to 20 mm and there was mild resistance at the cricopharyngeus. The remainder of the esophageal mucosa was normal. Impression: 1. Schatzki's ring dilated to 20 mm (originally 8 mm diameter) 2. Nonerosive GERD with moderate esophageal dysmotility and very small sliding 1 to 2 cm hiatal hernia 3. Bile reflux with mild linear reactive gastropathy Plan: I will follow-up the biopsies. The patient should have clinical improvement with dilation. We will discuss the findings and I would continue PPI therapy. She is overdue for surveillance colonoscopy.
[2025-02-07 07:38] VITALS: O2SAT 100
[2025-02-07 07:54] VITALS: BP 148/71; PULSE 94; RESP 16; TEMP 36.1; O2SAT 99
[2025-02-07 08:04] VITALS: BP 128/68; PULSE 82; RESP 18; O2SAT 98
[2025-02-07 08:14] VITALS: BP 137/67; PULSE 90; RESP 16; O2SAT 99
[2025-02-07 08:24] VITALS: BP 143/74; PULSE 85; RESP 16; O2SAT 99
== END 2025-02-07 08:30 | disposition home or self-care (01) ==
PROVIDERS: PCP Family Medicine; Visit Provider Internal Medicine Gastroenterology
PROC: 0DJ08ZZ Inspection of Upper Intestinal Tract, Via Natural or Artificial Opening Endoscopic (ICD-10-PCS; CPT 43239; principal; 2025-02-07 07:30)
DX: K44.9 Diaphragmatic hernia without obstruction or gangrene (principal); K22.4 Dyskinesia of esophagus; K31.9 Disease of stomach and duodenum, unspecified; R13.10 Dysphagia, unspecified; K22.2 Esophageal obstruction; Z87.19 Personal history of other diseases of the digestive system; K21.9 Gastro-esophageal reflux disease without esophagitis
CPT/HCPCS: 43239; 43249; 88305; C1726; J7120

== ENCOUNTER 2025-06-24 08:41 | Outpatient (CLI) | payer MEDICARE, OTHER, SELFPAY ==
--- NOTE | 2025-06-24 08:44 | XR_ITS ---
FINAL REPORT CLINICAL HISTORY: SCREENING COMPARISON: None FINDINGS: Using L1-4, the bone mineral density of the spine is 1.070 g/cm2, corresponding to T-score of 0.2. Using the left hip, the bone mineral density of the femoral neck is 0.549 g/cm2, corresponding to a T-score of -3.2. Using the right hip, the bone mineral density of the femoral neck is 0.622 g/cm2, corresponding to a T-score of -2.0. NOTE: T-score: Standard deviation compared with peak bone mass of young adult mean. *Following the recommendations of the International Society of Bone densitometry, classification of hip BMD is based on the lower of two T-scores; total hip or femoral neck. IMPRESSION: Diminished bone mineral density of the left femoral neck consistent with osteoporosis. Diminished bone mineral density of the right femoral neck consistent with osteopenia. Normal bone mineral density of the lumbar spine. Reviewed, Interpreted and Dictated by Ronnie Wagner MD Transcribed by Anisa Horan Authenticated and [facility]
--- OUTSIDE RECORDS SUMMARY | 2025-06-24 08:44 | XMS_ITS | Clinical Summary ---
Author Organization [facility] 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
--- OUTSIDE RECORDS SUMMARY | 2025-06-24 08:44 | XMS_ITS ---
Author Organization Unknown Medications Date Medication Dosage DosageUnit StartDate StopDate StopReason Active DoseQuantity DoseUnit Dispense DispenseUnit Refills NdcCode DrugCode PharmacyId IsPrescription MappedMedication Srcstatus Custom 05/03 00:00 :00 Albuterol Sulfate (2.5 MG/3ML) 0.083% Nebulizatio n Solution 06/02/2021 00:00:00 1 [id number] 7 052 P Taking 03/19 00:00 :00 Albuterol Sulfate (2.5 MG/3ML) 0.083% Nebulizatio n Solution 06/02/2021 00:00:00 1 [id number] 7 052 P Taking 01/14 00:00 :00 Albuterol Sulfate (2.5 MG/3ML) 0.083% Nebulizatio n Solution 06/02/2021 00:00:00 1 [id number] 7 052 P Continue 01/14 00:00 :00 Albuterol Sulfate (2.5 MG/3ML) 0.083% Nebulizatio n Solution 06/02/2021 00:00:00 1 50 2 [id number] 7 052 P Taking 12/18 00:00 :00 Albuterol Sulfate (2.5 MG/3ML) 0.083% Nebulizatio n Solution 06/02/2021 00:00:00 1 50 2 [id number] 7 052 P Taking 10/24 00:00 :00 Albuterol Sulfate (2.5 MG/3ML) 0.083% Nebulizatio n Solution 06/02/2021 00:00:00 1 50 2 [id number] 7 052 P Taking 09/07 00:00 :00 Albuterol Sulfate 108 (90 Base) MCG/ACT Aerosol Powder Breath Activated 09/07/2024 00:00:00 0 [id number] 8 020 P Stop 09/07 00:00 :00 Albuterol Sulfate 108 (90 Base) MCG/ACT Aerosol Powder Breath Activated 09/07/2024 00:00:00 1 1 5 [id number] 8 020 P Start 07/06 00:00 :00 Albuterol Sulfate (2.5 MG/3ML) 0.083% Nebulizatio n Solution 06/02/2021 00:00:00 1 50 2 [id number] 7 052 P Taking 06/29 00:00 :00 Albuterol Sulfate (2.5 MG/3ML) 0.083% Nebulizatio n Solution 06/02/2021 00:00:00 1 50 2 [id number] 7 052 P Taking 05/03 00:00 :00 Aspirin 325 MG Tablet 1 [id number] 714 Taking 03/19 00:00 :00 Aspirin 325 MG Tablet 1 [id number] 714 Taking 01/14 00:00 :00 Aspirin 325 MG Tablet 1 [id number] 714 Taking 12/18 00:00 :00 Aspirin 325 MG Tablet 1 [id number] 714 Taking 10/24 00:00 :00 Aspirin 325 MG Tablet 1 [id number] 714 Taking 07/06 00:00 :00 Aspirin 325 MG Tablet 1 [id number] 714 Taking 06/29 00:00 :00 Aspirin 325 MG Tablet 1 [id number] 714 Taking 05/03 00:00 :00 B-12 1000 MCG Tablet 11/03/2016 00:00:00 1 Over The Counter [id number] 201 P Taking 03/19 00:00 :00 B-12 1000 MCG Tablet 11/03/2016 00:00:00 1 Over The Counter [id number] 201 P Taking 01/14 00:00 :00 B-12 1000 MCG Tablet 11/03/2016 00:00:00 1 Over The Counter [id number] 201 P Taking 12/18 00:00 :00 B-12 1000 MCG Tablet 11/03/2016 00:00:00 1 Over The Counter [id number] 201 P Taking 10/24 00:00 :00 B-12 1000 MCG Tablet 11/03/2016 00:00:00 1 Over The Counter [id number] 201 P Taking 07/06 00:00 :00 B-12 1000 MCG Tablet 11/03/2016 00:00:00 1 Over The Counter [id number] 201 P Taking 06/29 00:00 :00 B-12 1000 MCG Tablet 11/03/2016 00:00:00 1 Over The Counter [id number] 201 P Taking 05/03 00:00 :00 Breztri Aerosphere 160-9-4 .8 MCG/ACT Aerosol 1 [id number] 612 Taking 03/19 00:00 :00 Breztri Aerosphere 160-9-4 .8 MCG/ACT Aerosol 1 [id number] 612 Taking 01/14 00:00 :00 Breztri Aerosphere 160-9-4 .8 MCG/ACT Aerosol 1 [id number] 612 Continue 01/14 00:00 :00 Breztri Aerosphere 160-9-4 .8 MCG/ACT Aerosol 1 [id number] 612 Taking 12/18 00:00 :00 Breztri Aerosphere 160-9-4 .8 MCG/ACT Aerosol 1 [id number] 612 Taking 10/24 00:00 :00 Breztri Aerosphere 160-9-4 .8 MCG/ACT Aerosol 1 [id number] 612 Taking 07/06 00:00 :00 Breztri Aerosphere 160-9-4 .8 MCG/ACT Aerosol 1 [id number] 612 Taking 06/29 00:00 :00 Breztri Aerosphere 160-9-4 .8 MCG/ACT Aerosol 1 [id number] 612 Taking 12/18 00:00 :00 Cefdinir 300 MG Capsule 10/24/2024 00:00:00 0 14 Capsule 0 [id number] 006 P Discontinu ed 10/24 00:00 :00 Cefdinir 300 MG Capsule 10/24/2024 00:00:00 1 14 Capsule 0 [id number] 006 P Start 07/06 00:00 :00 Cefdinir 300 MG Capsule 06/29/2024 00:00:00 0 14 Capsule 0 [id number] 006 P Discontinu ed 06/29 00:00 :00 Cefdinir 300 MG Capsule 06/29/2024 00:00:00 1 14 Capsule 0 [id number] 006 P Start 05/03 00:00 :00 Cyclobenzap rine HCl 5 MG Tablet 07/01/2023 00:00:00 1 30 2 [id number] 2 001 P Taking 03/19 00:00 :00 Cyclobenzap rine HCl 5 MG Tablet 07/01/2023 00:00:00 1 30 2 [id number] 2 001 P Unknown Status 03/19 00:00 :00 Cyclobenzap rine HCl 5 MG Tablet 07/01/2023 00:00:00 1 30 3 [id number] 2 001 P Taking 01/14 00:00 :00 Cyclobenzap rine HCl 5 MG Tablet 07/01/2023 00:00:00 1 30 3 [id number] 2 001 P Taking 12/18 00:00 :00 Cyclobenzap rine HCl 5 MG Tablet 07/01/2023 00:00:00 1 30 3 [id number] 2 001 P Taking 10/24 00:00 :00 Cyclobenzap rine HCl 5 MG Tablet 07/01/2023 00:00:00 1 30 3 [id number] 2 001 P Taking 07/06 00:00 :00 Cyclobenzap rine HCl 5 MG Tablet 07/01/2023 00:00:00 1 30 3 [id number] 2 001 P Taking 06/29 00:00 :00 Cyclobenzap rine HCl 5 MG Tablet 07/01/2023 00:00:00 1 30 3 [id number] 2 001 P Unknown Status 06/29 00:00 :00 Cyclobenzap rine HCl 5 MG Tablet 07/01/2023 00:00:00 1 30 3 [id number] 2 001 P Taking 12/18 00:00 :00 dexAMETHaso ne 4 MG Tablet 10/24/2024 00:00:00 0 10 Tablet 0 40820 418 425 P Discontinu ed 10/24 00:00 :00 dexAMETHaso ne 4 MG Tablet 10/24/2024 00:00:00 1 10 Tablet 0 18732 418 425 P Start 10/24 00:00 :00 dexAMETHaso ne 2 MG Tablet 07/06/2024 00:00:00 0 10 Tablet 0 79932 418 325 P Discontinu ed 07/06 00:00 :00 dexAMETHaso ne 2 MG Tablet 07/06/2024 00:00:00 1 10 Tablet 0 [id number] 418 325 P Start 05/03 00:00 :00 Fluticasone Propionate 50 MCG/ACT Suspension 01/13/2018 00:00:00 1 1 bottle 11 [id number] 27 099 P Taking 03/19 00:00 :00 Fluticasone Propionate 50 MCG/ACT Suspension 01/13/2018 00:00:00 1 1 bottle 11 [id number] 27 099 P Taking 01/14 00:00 :00 Fluticasone Propionate 50 MCG/ACT Suspension 01/13/2018 00:00:00 1 1 bottle 11 [id number] 27 099 P Taking 12/18 00:00 :00 Fluticasone Propionate 50 MCG/ACT Suspension 01/13/2018 00:00:00 1 1 bottle 11 [id number] 27 099 P Taking 10/24 00:00 :00 Fluticasone Propionate 50 MCG/ACT Suspension 01/13/2018 00:00:00 1 1 bottle 11 [id number] 27 099 P Taking 07/06 00:00 :00 Fluticasone Propionate 50 MCG/ACT Suspension 01/13/2018 00:00:00 1 1 bottle 11 [id number] 27 099 P Taking 06/29 00:00 :00 Fluticasone Propionate 50 MCG/ACT Suspension 01/13/2018 00:00:00 1 1 bottle 11 [id number] 27 099 P Taking 05/03 00:00 :00 Gabapentin 300 MG Capsule 12/18/2024 00:00:00 1 [id number] 6 661 P Taking 03/19 00:00 :00 Gabapentin 300 MG Capsule 12/18/2024 00:00:00 1 [id number] 6 661 P Taking 01/14 00:00 :00 Gabapentin 300 MG Capsule 12/18/2024 00:00:00 1 [id number] 6 661 P Continue 01/14 00:00 :00 Gabapentin 300 MG Capsule 12/18/2024 00:00:00 1 30 Capsule 5 [id number] 661 P Taking 12/18 00:00 :00 Gabapentin 300 MG Capsule 12/18/2024 00:00:00 1 30 Capsule 5 [id number] 661 P Unknown Status 12/18 00:00 :00 Gabapentin 300 MG Capsule 07/01/2023 00:00:00 1 30 Capsule 5 [id number] 661 P Taking 10/24 00:00 :00 Gabapentin 300 MG Capsule 07/01/2023 00:00:00 1 30 Capsule 5 [id number] 661 P Taking 07/06 00:00 :00 Gabapentin 300 MG Capsule 07/01/2023 00:00:00 1 30 Capsule 5 [id number] 661 P Taking 06/29 00:00 :00 Gabapentin 300 MG Capsule 07/01/2023 00:00:00 1 30 Capsule 5 [id number] 661 P Taking 01/14 00:00 :00 Hycodan 5-1.5 MG Tablet 03/07/2024 00:00:00 0 24 0 [id number] 0 503 P Discontinu ed 12/18 00:00 :00 Hycodan 5-1.5 MG Tablet 03/07/2024 00:00:00 1 24 0 [id number] 0 503 P Taking 10/24 00:00 :00 Hycodan 5-1.5 MG Tablet 03/07/2024 00:00:00 1 24 0 [id number] 0 503 P Taking 07/06 00:00 :00 Hycodan 5-1.5 MG Tablet 03/07/2024 00:00:00 1 24 0 [id number] 0 503 P Taking 06/29 00:00 :00 Hycodan 5-1.5 MG Tablet 03/07/2024 00:00:00 1 24 0 [id number] 0 503 P Taking 05/03 00:00 :00 Loratadine 10 MG Tablet 05/03/2025 00:00:00 1 90 Tablet 1 [id number] 067 430 P Start 05/03 00:00 :00 Montelukast Sodium 10 MG Tablet 07/01/2023 00:00:00 1 [id number] 0 806 P Taking 03/19 00:00 :00 Montelukast Sodium 10 MG Tablet 07/01/2023 00:00:00 1 [id number] 0 806 P Taking 01/14 00:00 :00 Montelukast Sodium 10 MG Tablet 07/01/2023 00:00:00 1 [id number] 0 806 P Continue 01/14 00:00 :00 Montelukast Sodium 10 MG Tablet 07/01/2023 00:00:00 1 30 11 [id number] 0 806 P Taking 12/18 00:00 :00 Montelukast Sodium 10 MG Tablet 07/01/2023 00:00:00 1 30 11 [id number] 0 806 P Taking 10/24 00:00 :00 Montelukast Sodium 10 MG Tablet 07/01/2023 00:00:00 1 30 11 [id number] 0 806 P Taking 07/06 00:00 :00 Montelukast Sodium 10 MG Tablet 07/01/2023 00:00:00 1 30 11 [id number] 0 806 P Taking 06/29 00:00 :00 Montelukast Sodium 10 MG Tablet 07/01/2023 00:00:00 1 30 11 [id number] 0 806 P Taking 05/03 00:00 :00 Nebulizer - Miscellaneo 1 [id number] 600 Taking 03/19 00:00 :00 Nebulizer - Miscellaneo us 1 [id number] 600 Taking 01/14 00:00 :00 Nebulizer - Miscellaneo us 1 [id number] 600 Taking 12/18 00:00 :00 Nebulizer - Miscellaneo us 1 [id number] 600 Taking 10/24 00:00 :00 Nebulizer - Miscellaneo us 1 [id number] 600 Taking 07/06 00:00 :00 Nebulizer - Miscellaneo us 1 [id number] 600 Taking 06/29 00:00 :00 Nebulizer - Miscellaneo us 1 [id number] 600 Taking 05/03 00:00 :00 Omeprazole 40 MG Capsule Delayed Release 02/27/2024 00:00:00 1 30 0 [id number] 3 401 P Taking 03/19 00:00 :00 Omeprazole 40 MG Capsule Delayed Release 02/27/2024 00:00:00 1 30 0 [id number] 3 401 P Taking 01/14 00:00 :00 Omeprazole 40 MG Capsule Delayed Release 02/27/2024 00:00:00 1 30 0 [id number] 3 401 P Taking 12/18 00:00 :00 Omeprazole 40 MG Capsule Delayed Release 02/27/2024 00:00:00 1 30 0 [id number] 3 401 P Taking 10/24 00:00 :00 Omeprazole 40 MG Capsule Delayed Release 02/27/2024 00:00:00 1 30 0 [id number] 3 401 P Taking 07/06 00:00 :00 Omeprazole 40 MG Capsule Delayed Release 02/27/2024 00:00:00 1 30 0 [id number] 3 401 P Taking 06/29 00:00 :00 Omeprazole 40 MG Capsule Delayed Release 02/27/2024 00:00:00 1 30 0 [id number] 3 401 P Taking 05/03 00:00 :00 PreserVisio n AREDS - Tablet 1 79870 043 262 Taking 03/19 00:00 :00 PreserVisio n AREDS - Tablet 1 18162 043 262 Taking 01/14 00:00 :00 PreserVisio n AREDS - Tablet 1 44986 043 262 Taking 12/18 00:00 :00 PreserVisio n AREDS - Tablet 1 29760 043 262 Taking 10/24 00:00 :00 PreserVisio n AREDS - Tablet 1 34785 043 262 Taking 07/06 00:00 :00 PreserVisio n AREDS - Tablet 1 79899 043 262 Taking 06/29 00:00 :00 PreserVisio n AREDS - Tablet 1 70553 043 262 Taking 05/03 00:00 :00 Promethazin e-DM 6.25-15 MG/5ML Syrup 03/19/2025 00:00:00 1 240 mL 1 [id number] 2 416 P Taking 03/19 00:00 :00 Promethazin e-DM 6.25-15 MG/5ML Syrup 03/19/2025 00:00:00 1 240 mL 1 [id number] 2 416 P Start 05/03 00:00 :00 Ventolin HFA 108 (90 Base) MCG/ACT Aerosol Solution 09/07/2024 00:00:00 1 [id number] 8 220 P Taking 03/19 00:00 :00 Ventolin HFA 108 (90 Base) MCG/ACT Aerosol Solution 09/07/2024 00:00:00 1 [id number] 8 220 P Taking 01/14 00:00 :00 Ventolin HFA 108 (90 Base) MCG/ACT Aerosol Solution 09/07/2024 00:00:00 1 [id number] 8 220 P Continue 01/14 00:00 :00 Ventolin HFA 108 (90 Base) MCG/ACT Aerosol Solution 09/07/2024 00:00:00 1 1 1 [id number] 8 220 P Taking 12/18 00:00 :00 Ventolin HFA 108 (90 Base) MCG/ACT Aerosol Solution 09/07/2024 00:00:00 1 1 1 [id number] 8 220 P Taking 10/24 00:00 :00 Ventolin HFA 108 (90 Base) MCG/ACT Aerosol Solution 09/07/2024 00:00:00 1 1 1 [id number] 8 220 P Taking 09/07 00:00 :00 Ventolin HFA 108 (90 Base) MCG/ACT Aerosol Solution 09/07/2024 00:00:00 1 1 1 [id number] 8 220 P Start 05/03 00:00 :00 Vitamin D3 50 MCG (2000 UT) Capsule 1 [id number] 301 Taking 03/19 00:00 :00 Vitamin D3 50 MCG (2000 UT) Capsule 1 00242033 301 Taking 01/14 00:00 :00 Vitamin D3 50 MCG (2000 UT) Capsule 1 27632050 301 Continue 01/14 00:00 :00 Vitamin D3 50 MCG (2000 UT) Capsule 1 OTC [id number] 301 Taking 12/18 00:00 :00 Vitamin D3 50 MCG (2000 UT) Capsule 1 OTC [id number] 301 Taking 10/24 00:00 :00 Vitamin D3 50 MCG (2000 UT) Capsule 1 OTC [id number] 301 Taking 07/06 00:00 :00 Vitamin D3 50 MCG (2000 UT) Capsule 1 OTC [id number] 301 Taking 06/29 00:00 :00 Vitamin D3 50 MCG (1999) Capsule 1 OTC [id number] 301 Taking 05/03 00:00 :00 Zithromax Z-Edi 250 MG Tablet 03/19/2025 00:00:00 0 6 tabs 0 [id number] 6 075 P Discontinu ed 03/19 00:00 :00 Zithromax Z-Edi 250 MG Tablet 03/19/2025 00:00:00 1 6 tabs 0 [id number] 6 075 P Start
--- OUTSIDE RECORDS SUMMARY | 2025-06-24 08:44 | XMS_ITS | Clinical Summary ---
Author Organization [facility] Address [address] [place] [address] Care Team Providers Care Insurance Processor Name Role Phone Sadi Manzanares MD Primary Care Provider [phone] Social History Tobacco Use Types Packs/Day Years Used Date Smoking Tobacco: Never Assessed Abuse Screen Answer Date Recorded Unsafe at Home or Work/School Not on file Feels Threatened by Someone? Not on file 09/2023 Does Anyone Keep You from Co ntacting Others or Doint Things Outside the Home? Not on file 08/17/2023 Physical Sign of Abuse Present Not on file 1 Housing Stability Answer Date Recorded Current Living Arrangements Not on file 08/07 Potentially Unsafe Housing Conditions Not on melody e 08/17/2023 Family and Community Support Answer Moses e Recorded Help with Day-to-Day Activities Not on file 08/17/2023 Lonely or Isolated Not on file 08/17/2023 Employment Answer Date Recorded Do you want help finding or keeping work or a niharika b? Not on file 08/17/2023 Disabilities Answer Date Recorded Concentrating, Remembering, or Making Decisions Difficulty Not on file 08/17/2023 Doing Errands Independently Difficulty Not on fi le 08/17/2023 Education Answer Date Recorded Help with school or training? Not on file Preferred Language Not on file 08/17/2023 Comments Unknown Sex and Gender Information Value Date Recorded Sex Assigned at Not on file Legal Sex Female 3:51 PM EST Gender Identity Not on file Sexual Orientation Not on file Plan of Treatment Health Maintenance Due Date Last Done Comments DXA SCAN 1948 TDAP/TD VACCINES (1 - Tdap) 1967 Pneumococcal Vaccine 50+ (1 of 1 - PCV) 1998 ZOSTER VACCINE (1 of 2) 1998 ANNUAL PHYSICAL 02/05/2022 HEPATITIS C SCREENING 02/05/2022 PT PLAN OF CARE 02/09/2022 RSV Vaccine - Adults (1 - 1- dose 75+ series) 2023 COVID-19 Vaccine (4 - 2023-2 5 season) 2024 11/04/2021, 01/08/2021, 12/11/2020 INFLUENZA VACCINE 08/07/2025 08/18/2021, 08/07/2020 MAMMOGRAM Discontinued 01/06/2011 FECAL OCCULT BLOOD TEST Discontinued 10/13/2015 COLONOSCOPY Discontinued 04/20/2016 COLORECTAL CANCER SCREENING Discontinued COLOGUARD Discontinued COLON CANCER SCREENING 5 YEA R SIGMOIDOSCOPY Discontinued CT COLONOGRAPHY Discontinued FIT Testing (1 year) Discontinued Procedures Procedure Name Priority Date/Time Associated Diagnosis Comments SCANNED - MAMMO 01/06/2011 from Last 3 Months or Most Recently Relevant to Health Maintenance Results * SCANNED - MAMMO (01/06/2011) Anatomical Region Laterality Modality Other [facility] TABS Final Re sult from Last 3 Months or Most Recently Relevant to Health Maintenance Insurance MEDICARE A & B [facility] [id number] Care Teams Insurance Processor Relationship Specialty Start Date End Date Sadi Manzanares MD [address] [facility] [address] [facility] [address] [place] [address] PCP - General 12/11/15
== END 2025-06-24 23:59 | disposition home or self-care (01) ==
LOC: RAD 08:42
PROVIDERS: PCP Family Medicine; Visit Provider Family Medicine
DX: M81.0 Age-related osteoporosis without current pathological fracture (principal); M85.851 Other specified disorders of bone density and structure, right thigh
CPT/HCPCS: 77080